=== PATIENT | male | born 1965 | race Caucasian/White ===

== ENCOUNTER 2020-06-03 17:47 | Emergency (ER) | payer SELFPAY ==
[2020-06-03 17:48] VITALS: BP 238/153; PULSE 113; RESP 18; O2SAT 97; BMI 41.1
[2020-06-03 17:54] VITALS: BP 201/128; PULSE 87; RESP 22; O2SAT 93
--- NOTE | 2020-06-03 18:01 | ECG_ITS ---
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 Measurements Intervals [place] Rate: 105 P: 16 ME: 164 QRS: 120 QRSD: 100 T: -29 QT: 362 QTc: 479 Interpretive Statements SINUS TACHYCARDIA POSSIBLE LEFT ATRIAL ENLARGEMENT [-0.1mV P WAVE IN V1/V2] INCOMPLETE RIGHT BUNDLE BRANCH BLOCK [90+ ms QRS DURATION, TERMINAL R IN V1/V2, 40+ ms S IN I/aVL/V4/V5/V6] POSSIBLE RIGHT VENTRICULAR HYPERTROPHY [SOME/ALL OF: PROMINENT R IN V1, LATE TRANSITION, RAD, JOÃO, SSS] Nonspecific T wave changes POSSIBLE ANTERIOR MYOCARDIAL INFARCTION , OF INDETERMINATE AGE [30 ms Q WAVE IN V3/V4, OR R < 0.2 mV IN V4] Compared to ECG 05/21/2018 20:15:37 Incomplete right bundle-branch block now present Myocardial infarct finding still present Electronically Signed On 06-04-2020 20:35:36 CDT by Armani Chiang M.D. [id number] f
--- NOTE | 2020-06-03 18:01 | XR_ITS ---
WS: [id number] Exam: XR chest 1V portable [id number] Date/Time of Exam: 06/03/2020 6:03 PM Reason For Exam: sob No priors. There is cardiac enlargement with mild pulmonary vascular congestion suggesting low-grade CHF. No pl eural effusion or pneumothorax. No consolidating infiltrates. The mediastinum is unremarkable for jeb hnique. Regional bony elements are intact. XR/XR chest 1V portable [id number] IMPRESSION: 1. Cardiac enlargement with pulmonary vascular congestion suggesting some degre e of the low-grade CHF.
--- NOTE | 2020-06-03 18:19 | ED_ITS ---
HPI - General Adult General: Chief complaint: General Medical Stated complaint: SOB/High BP Time Seen by Provider: 06/03/20 17:58 Source: patient Mode of arrival: ambulatory Limitations: no limitations History of Present Illness: HPI narrative: 55-year-old male states he has a long history of high blood pressure. He states he has not taken any blood pressure medicines for over a year as he ran out. He states he is take metoprolol and clonidine. He states today started having some dyspnea and felt like his blood pressure was high. His blood pressure is 238/153 he states that is pretty normal for him. He denies any worsening improving factors. He denies any chest pain. Associated symptoms: Reports dyspnea and headache(s); Deny chest pain, nausea, rash or vomiting Review of Systems Const: Denies: fever(s), chills, body aches or change in appetite Eyes: Denies: blurry vision or eye discomfort ENMT: Denies: throat pain or dental pain Card: Denies: chest pain Resp: Reports: dyspnea GI: Denies: abdominal pain, nausea, vomiting or diarrhea : Denies: dysuria Musc: Denies: neck pain or back pain Skin/Breast: Denies: rash Neuro: Reports: headache(s) Psych: Denies: depression Pascual/Lymph: Denies: easy bruising All/Imm: Denies: urticaria Physical Exam Const: COMMON NORMALS: no acute distress, patient oriented x3 and healthy appearing HENMT: COMMON NORMALS: normocephalic and atraumatic HEAD & SCALP: normocephalic and atraumatic Eye: COMMON NORMALS: Equal, round and reactive pupils present and EOMs intact bilaterally PUPIL: Yes Equal, round and reactive pupils present Neck/C-Spine: COMMON NORMALS: full ROM and supple Chest: COMMONS NORMALS: normal inspection of the chest and normal palpation of entire chest wall Resp: COMMON NORMALS: normal respiratory effort, No retractions, No use of accessory muscles and clear to auscultation bilaterally AUSCULTATION: clear to auscultation bilaterally Cardio: COMMON NORMALS: regular rate, regular rhythm and No murmurs present (Cardio) RATE: regular rate RHYTHM: regular rhythm GI: COMMON NORMALS: Normal to inspection, nondistended, normoactive bowel sounds present, Soft to palpation, non-tender and no masses PALPATION: Yes Soft to palpation Extremity: COMMON NORMALS: normal to inspection and full ROM Neuro: COMMON NORMALS: patient oriented x3, moves all extremities and no focal motor deficits Psych: COMMON NORMALS: mental status grossly normal, Normal thought process present and cooperative THOUGHT PROCESS: Normal thought process present Skin: COMMON NORMALS: no rashes or lesions noted and no wounds GENERAL SKIN EXAM: no rashes or lesions noted Course Vital Signs: Vital signs: Vital Signs Pulse Rate 93 06/03/20 21:06 Respiratory Rate 26 H 06/03/20 21:06 Blood Pressure 166/111 06/03/20 21:06 Pulse Oximetry 96 06/03/20 21:06 MDM - General Adult MDM Narrative: Medical decision making narrative: Jeronimo presents here with hypertension that is been uncontrolled for quite some time due to noncompliance. His blood pressure here is improved and he feels improved. His repeat troponin here is normal. He has no signs of acute coronary syndrome or pulmonary embolism. We will start him on metoprolol at home. He is to follow-up with PCP in 3 to 5 days and return to the ER if worsening. He understands agrees to plan. Lab Data: Labs: Lab Results 06/03/20 06/03/20 06/03/20 Range/Units 18:25 18:25 18:25 WBC 9.7 (4.0-10.0) 10^3/ uL RBC 5.39 H (4.1-5.3) 10^6/u L Hgb 14.1 (11.7-16.6) g/dL Hct 46.5 (42.0-52.0) % MCV 86.3 (80-94) fL MCH 26.2 L (28.0-34.0) pg MCHC 30.3 (30.0-36.0) g/dL RDW 15.0 (12.1-15.1) % Plt Count 289 (130-400) 10^3/c mm MPV 9.6 (7.4-10.4) fL Neut % (Auto) 81.8 % Lymph % (Auto) 10.4 % [place] % (Auto) 5.9 % Eos % (Auto) 1.3 % Baso % (Auto) 0.3 % Neut # (Auto) 7.94 H (1.8-7.7) 10^3/u L Lymph # (Auto) 1.0 (0.8-4.8) 10^3/u L [place] # (Auto) 0.6 (0.2-0.9) 10^3/u L Eos # (Auto) 0.1 (0.0-0.8) 10^3/u L Baso # (Auto) 0.0 (0.0-0.1) 10^3/u L Nucleated RBC % (a uto) 0 % Nucleated RBCs # 0.0 /100WBC Sodium 139 (136-145) mmol/L Potassium 3.7 (3.5-5.1) mmol/L Chloride 99 (98-107) mmol/L Carbon Dioxide 27 (22-29) mmol/L Anion Gap 16.7 (5-19) BUN 13 (6-20) mg/dL Creatinine 1.1 (0.7-1.2) mg/dL GFR Calculation 69.8 L (90-130) mL/min Glucose 114 (65-115) mg/dL Calculated Osmolal ity 289 (285-295) mOsm/k g Calcium 8.7 (8.5-10.5) mg/dL Total Bilirubin 0.6 (0.15-1.2) mg/dL AST 15 (0-40) U/L ALT 20 (0-41) U/L Alkaline Phosphata se 91 (40-130) IU/L Troponin T Baselin e 35 H (0-15) ng/L Troponin T 120 Min [place] (0-15) ng/L Delta Troponin T (0-10) ABS# NT-Pro-B Natriuret Pep 825 H (0-125) pg/mL Total Protein 8.1 (6.6-8.7) g/dL Albumin 4.0 (3.5-5.2) g/dL Globulin 4.1 (1.3-4.6) g/dL 06/03/ Range/Units 20:29 WBC (4.0-10.0) 10^3/ uL RBC (4.1-5.3) 10^6/u L Hgb (11.7-16.6) g/dL Hct (42.0-52.0) % MCV (80-94) fL MCH (28.0-34.0) pg MCHC (30.0-36.0) g/dL RDW (12.1-15.1) % Plt Count (130-400) 10^3/c mm MPV (7.4-10.4) fL Neut % (Auto) % Lymph % (Auto) % [place] % (Auto) % Eos % (Auto) % Baso % (Auto) % Neut # (Auto) (1.8-7.7) 10^3/u L Lymph # (Auto) (0.8-4.8) 10^3/u L [place] # (Auto) (0.2-0.9) 10^3/u L Eos # (Auto) (0.0-0.8) 10^3/u L Baso # (Auto) (0.0-0.1) 10^3/u L Nucleated RBC % (a uto) % Nucleated RBCs # /100WBC Sodium (136-145) mmol/L Potassium (3.5-5.1) mmol/L Chloride (98-107) mmol/L Carbon Dioxide (22-29) mmol/L Anion Gap (5-19) BUN (6-20) mg/dL Creatinine (0.7-1.2) mg/dL GFR Calculation (90-130) mL/min Glucose (65-115) mg/dL Calculated Osmolal ity (285-295) mOsm/k g Calcium (8.5-10.5) mg/dL Total Bilirubin (0.15-1.2) mg/dL AST (0-40) U/L ALT (0-41) U/L Alkaline Phosphata se (40-130) IU/L Troponin T Baselin e (0-15) ng/L Troponin T 120 Min [place] 32.59 H (0-15) ng/L Delta Troponin T -2.41 L (0-10) ABS# NT-Pro-B Natriuret Pep (0-125) pg/mL Total Protein (6.6-8.7) g/dL Albumin (3.5-5.2) g/dL Globulin (1.3-4.6) g/dL Imaging Data^: CXR: Attestation: I personally reviewed and interpreted this imaging study as follows: My impression: no acute abnormality EKG Data^: EKG 1: Attestation: I personally reviewed and interpreted this EKG as follows: EKG interpretation date: 06/03/20 EKG interpretation time: 18:13 Interpretation: sinus tach hr [address] or t wave abnormalities qrs 100 qtc 422 Discharge Plan Discharge Patient Disposition: Home Clinical Impression: Hypertension Qualifiers: Hypertension type: essential hypertension Qualified Code(s): I10 - Essential (primary) hypertension Condition: Stable Prescriptions: New metoprolol succinate 50 mg tablet extended release 24 hr 50 mg PO DAILY Qty: 30 RF: 0 Discharge Orders: Discharge ED (Routine); Ordered 06/03/20 Ordered By: Eloy Bay Referrals: Blanca Alonzo FNP [Primary Care Provider] - 1-3 days Discharge Diet: Advance as tolerated Discharge Activity: Resume usual activity Coding Level of Care Code ED Novelty Printing Machine Operator for Chg Fwd Exam Comprehensive
--- NOTE | 2020-06-03 18:30 | PC.NURSE ---
Noted lower extremities swollen. Pt states he has lower legs wrapped.
[2020-06-03] MEDS: labetalol 5 mg/mL SDV 20mL 20 MG IVP (18:32)
[2020-06-03 18:34] VITALS: BP 155/110; PULSE 88; RESP 27; O2SAT 98
[2020-06-03 18:54] LABS: Basophils % 0.3 %; Eosinophils # 0.1 10^3/uL (0.0-0.8); Eosinophils % 1.3 %; Hematocrit 46.5 % (42.0-52.0); Hemoglobin 14.1 g/dL (11.7-16.6); Lymphocytes % 10.4 %; Mean Corpuscular HGB Conc 30.3 g/dL (30.0-36.0); Mean Corpuscular Hemoglobin 26.2 pg (28.0-34.0); Mean Corpuscular Volume 86.3 fL (80-94); Mean Platelet Volume 9.6 fL (7.4-10.4); Monocytes # 0.6 10^3/uL (0.2-0.9); Monocytes % 5.9 %; Neutrophils # 7.94 10^3/uL (1.8-7.7); Neutrophils % 81.8 %; Nucleated Red Blood Cells % 0 %; Platelet Count 289 10^3/cmm (130-400); Red Blood Count 5.39 10^6/uL (4.1-5.3); White Blood Count 9.7 10^3/uL (4.0-10.0)
[2020-06-03 19:22] VITALS: BP 157/112; PULSE 83; RESP 18; O2SAT 94
[2020-06-03 19:28] VITALS: BP 153/106; PULSE 87; O2SAT 96
[2020-06-03 19:40] LABS: Troponin(5th) Baseline 35 ng/L (0-15)
[2020-06-03 19:47] LABS: Alanine Aminotransferase 20 U/L (0-41); Alkaline Phosphatase 91 IU/L (40-130); Anion Gap 16.7 (5-19); Aspartate Amino Transferase 15 U/L (0-40); Blood Urea Nitrogen 13 mg/dL (6-20); Calcium 8.7 mg/dL (8.5-10.5); Carbon Dioxide 27 mmol/L (22-29); Chloride 99 mmol/L (98-107); Globulin 4.1 g/dL (1.3-4.6); Glomerular Filtration Rate 69.8 mL/min (90-130); Glucose 114 mg/dL (65-115); NT Pro B Type Natriuretic Pept 825 pg/mL (0-125); Osmolality Calculated 289 mOsm/kg (285-295); Potassium 3.7 mmol/L (3.5-5.1); Sodium 139 mmol/L (136-145); Total Bilirubin 0.6 mg/dL (0.15-1.2); Total Protein 8.1 g/dL (6.6-8.7)
[2020-06-03 20:55] LABS: Troponin 5 2HR 32.59 ng/L (0-15); Troponin 5 2HR Delta -2.41 ABS# (0-10)
[2020-06-03 21:06] VITALS: BP 166/111; PULSE 93; RESP 26; O2SAT 96
== END 2020-06-03 21:26 | disposition home or self-care (01) ==
PROVIDERS: Emergency Provider Emergency Medicine; PCP Nurse Practitioner
DX: I10 Essential (primary) hypertension (principal)
CPT/HCPCS: 71045; 80053; 83880; 84484; 85025; 93005; 96374; 99284; J3490

== ENCOUNTER → 2020-06-11 13:37 | Outpatient (BNVA) | payer OTHER, SELFPAY | PROVIDERS: PCP Nurse Practitioner; Visit Provider Nurse Practitioner Family | DX: J06.9 Acute upper respiratory infection, unspecified (principal); Z20.822 Contact with and (suspected) exposure to COVID-19; I10 Essential (primary) hypertension | CPT/HCPCS: 87635 ==

== ENCOUNTER 2020-06-17 11:31 | Inpatient (IN) | payer SELFPAY ==
[2020-06-17] VITALS (9 sets, daily range): BP systolic 165–188; BP diastolic 110–133; PULSE 105–127; RESP 18–22; TEMP 36.6–36.7; O2SAT 91–97; BMI 42.3
--- NOTE | 2020-06-17 11:48 | XR_ITS ---
WS: [id number] Portable AP upright chest, 06/17/2020 Clinical Data: sob Comparison: Portable chest, 06/03/2020. Findings: There is a patchy left lower lobe opacity which is consistent with pneumonia. There is a le ss dense opacity overlying the right lower lobe. The heart remains enlarged. The aortic arch and desc ending aorta are tortuous. No pneumothorax is seen. XR/XR chest 1V portable [id number] Impression: 1. Patchy left lower lobe opacity consistent with pneumonia. 2. Minimal right lower lobe opacity which could represent pneumonia or atelecta sis. 3. Atherosclerosis and cardiomegaly
--- NOTE | 2020-06-17 11:51 | ECG_ITS ---
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1965 Requested By: Kunal Sainz Order Number: [id number] Mani MD: SHANIKA MORENO Measurements Intervals [place] Rate: 121 P: [place]: QRS: -54 QRSD: 87 T: 67 QT: 311 QTc: 443 Interpretive Statements ATRIAL FIBRILLATION WITH RAPID VENTRICULAR RESPONSE MARKED LEFT AXIS DEVIATION [QRS AXIS < -30] POSSIBLE ANTERIOR MYOCARDIAL INFARCTION [30 ms Q WAVE IN V3/V4, OR R < 0.2 mV IN V4], OF INDETERMINATE AGE Compared to ECG 06/03/2020 18:13:14 Left-axis deviation now present Sinus tachycardia no longer present Incomplete right bundle-branch block no longer present Atrial abnormality no longer present T-wave abnormality no longer present Myocardial infarct finding still present Electronically Signed On 06-17-2020 20:22:06 CDT by SHANIKA MORENO [email or web address]/[id number] f
--- NOTE | 2020-06-17 11:57 | ED_ITS ---
HPI - SOB/Dyspnea General: Chief Complaint: Shortness of Breath/Dyspnea Stated Complaint: SOB Time Seen by Provider: 06/17/20 11:45 History of Present Illness: HPI Narrative: The patient is a 55-year-old male with past medical history hypertension who comes to the ER complaining of 2 weeks of shortness of breath. He was seen here 2 weeks ago for tachycardia and shortness of breath and sent home with 50 mg of Toprol extended release. He says it did not work after a few days so he started taking 1 pill in the morning and 1 pill in the evening even though the prescription said just once a day. He says it still made no difference. He continues to have shortness of breath which is worse with exertion and elevated blood pressure. Prior to 2 weeks ago he had been a year without any medicines at all because he says he did not get refills. Today his heart rate is 127 and irregular. Blood pressure 188/117. Denies any other previous past medical history. He has large lower extremities which she says have chronically been large and are expected to be that way forever but they are not bothering him today. MD elicited complaint: shortness of breath Associated symptoms: Deny abdominal pain, chest pain, dizziness, extremity pain, orthopnea, palpitations or polyuria Review of Systems General: Reports: 10 or more systems reviewed and unremarkable except in HPI and below Const: Denies: fatigue Eyes: Denies: change in vision, blurry vision or eye redness ENMT: Denies: throat pain, swelling of lips/tongue, ear or mastoid pain or nasal congestion Card: Denies: chest pain, palpitations, irregular heart rhythm, edema, dyspnea on exertion or orthopnea Resp: Reports: dyspnea; Denies: productive cough or non-productive cough GI: Denies: abdominal pain, diarrhea or GI cramping : Denies: flank pain, urinary frequency or urinary urgency Musc: Denies: neck pain, back pain, extremity pain, joint pain, joint redness, limited range of motion or muscle weakness Skin/Breast: Denies: rash, pruritus, erythema, skin pain or skin tenderness Neuro: Denies: headache(s), numbness in extremities, weakness in extremities, sensory changes, difficulty walking, dizziness, confusion or Slurred speech present Psych: Denies: anxiety or depression Endo: Denies: polyuria All/Imm: Denies: urticaria, throat swelling or tongue swelling PFSH ED PFSH: Medical History (Updated 06/17/20 @ 15:46 by Kunal Sainz MD) History of hypertension Surgical History (Updated 06/17/20 @ 15:34 by Vernon Izquierdo MD) History of inguinal hernia repair Family History (Updated 06/17/20 @ 15:35 by Vernon Izquierdo MD) Father Cancer Prostate cancer Mother CAD (coronary artery disease) Social History (Updated 06/17/20 @ 15:36 by Vernon Izquierdo MD) Smoking and tobacco status: never smoked Alcohol intake: current Alcohol intake frequency: few times a month Substance/Drug Use: never Physical Exam Const: COMMON NORMALS: no acute distress, average body habitus, patient oriented x3, no limitations, healthy appearing, alert and well nourished GENERAL APPEARANCE: cooperative, comfortable, well kempt and well developed ORIENTATION/CONSCIOUSNESS: Yes awake, Yes oriented to person, Yes oriented to place and Yes oriented to time HENMT: COMMON NORMALS: normocephalic, external ears normal and Normal external nose present HEAD & SCALP: normal to inspection and normocephalic NOSE: No rmal external nose present EXTERNAL EAR: Yes external ears normal MOUTH: Normal oral and palatal mucosa present THROAT: posterior oropharynx normal Eye: COMMON NORMALS: Equal, round and reactive pupils present and EOMs intact bilaterally GENERAL EYE: appearance normal, both eyes and all related structures PUPIL: Yes Equal, round and reactive pupils present Neck/C-Spine: COMMON NORMALS: full ROM, no lymphadenopathy, no meningeal signs and no JVD GENERAL: Yes normal visual inspection Lymph: LYMPHATIC: no lymphadenopathy noted Chest: COMMONS NORMALS: normal inspection of the chest and normal palpation of entire chest wall Resp: COMMON NORMALS: normal respiratory effort, No retractions, No use of accessory muscles, clear to auscultation bilaterally and percussion normal EFFORT & INSPECTION: Yes able to speak in complete sentences AUSCULTATION: clear to auscultation bilaterally PERCUSSION: percussion normal Cardio: COMMON NORMALS: no JVD, S1 normal heart sound present, S2 normal heart sound present and Peripheral pulses 2+ throughout RATE: tachycardic RHYTHM: abnormal rhythm irregularly irregular and regularly irregular HEART SOUNDS: S1 normal heart sound present and S2 normal heart sound present PERIPHERAL PULSES: Peripheral pulses 2+ throughout GI: COMMON NORMALS: Normal to inspection, nondistended, normoactive bowel sounds present, Soft to palpation, non-tender and no masses INSPECTION: Yes normal to inspection PALPATION: Yes Soft to palpation : COMMON NORMALS: Yes no CVA tenderness BLADDER/KIDNEY EXAM: Yes no CVA tenderness Back/Pelvis: COMMON NORMALS: no CVA tenderness, thoracic and lumbar spine normal to inspection, no thoracic nor lumbar tenderness and thoraco-lumbar ROM normal Extremity: COMMON NORMALS: normal to inspection, full ROM, capillary refill normal, no joint enlargement and no pedal edema NARRATIVE EXTREMITY EXAM: Bilateral lower extremity edema 3+ with chronic skin thickening and scaly. Left lower extremity laterally has an area that is malodorous and likely a cellulitis. GENERAL: Yes normal exam except as noted Neuro: COMMON NORMALS: patient oriented x3, CN's II-XII intact bilaterally, moves all extremities, no focal motor deficits, no sensory deficits noted and gait normal SENSORIUM/ORIENTATION: Yes alert, Yes oriented to person, Yes oriented to place and Yes oriented to time MENINGEAL SIGNS: Yes no meningeal signs Psych: COMMON NORMALS: mental status grossly normal, Normal thought process pr esent, cooperative, normal affect and speech normal APPEARANCE: Yes well kempt ATTITUDE: Yes calm SPEECH: Yes normal speech THOUGHT PROCESS: Normal thought process present Skin: COMMON NORMALS: no rashes or lesions noted GENERAL SKIN EXAM: no rashes or lesions noted Course Vital Signs: Vital signs: Vital Signs Temperature 97.9 F 06/17/20 11:35 Pulse Rate 110 H 06/17/20 13:52 Respiratory Rate 18 06/17/20 13:52 Blood Pressure 166/112 06/17/20 13:52 Pulse Oximetry 95 06/17/20 13:52 MDM - SOB/Dyspnea MDM Narrative: Medical decision making narrative: Patient came to the ER for the second time in 2 weeks. He comes in complaining of shortness of breath again and tachycardia. On arrival he is in A. fib RVR with a rate in the 120s. This is a new disease for him. He also has chronically large legs with an area of cellulitis and likely congestive heart failure. He was given IV Lasix and an antibiotic to cover these problems. Chest CT also noted pneumonia. I discussed with him the enlarged mediastinal lymph nodes found on CT possibly reactive but recommended follow-up CT after he gets better. I discussed with him the small possibility of cancer and that he should repeat this to make sure they improve as if it is an early cancer, early diagnosis leads to better prognosis. Lab Data: Labs: Lab Results 06/17/20 06/17/20 06/17/20 Range/Units 12:00 12:00 12:00 WBC 10.5 H (4.0-10.0) 10^3/ uL RBC 5.38 H (4.1-5.3) 10^6/u L Hgb 14.1 (11.7-16.6) g/dL Hct 45.7 (42.0-52.0) % MCV 84.9 (80-94) fL MCH 26.2 L (28.0-34.0) pg MCHC 30.9 (30.0-36.0) g/dL RDW 14.7 (12.1-15.1) % Plt Count 335 (130-400) 10^3/c mm MPV 9.4 (7.4-10.4) fL Neut % (Auto) 80.0 % Lymph % (Auto) 12.0 % [place] % (Auto) 6.7 % Eos % (Auto) 0.5 % Baso % (Auto) 0.4 % Neut # (Auto) 8.39 H (1.8-7.7) 10^3/u L Lymph # (Auto) 1.3 (0.8-4.8) 10^3/u L [place] # (Auto) 0.7 (0.2-0.9) 10^3/u L Eos # (Auto) 0.1 (0.0-0.8) 10^3/u L Baso # (Auto) 0.0 (0.0-0.1) 10^3/u L Nucleated RBC % (a uto) 0 % Nucleated RBCs # 0.0 /100WBC D-Dimer 1.45 H (0-0.59) ug/mIFE U Sodium 133 L (136-145) mmol/L Potassium 4.5 (3.5-5.1) mmol/L Chloride 96 L (98-107) mmol/L Carbon Dioxide 28 (22-29) mmol/L Anion Gap 13.5 (5-19) BUN 15 (6-20) mg/dL Creatinine 1.1 (0.7-1.2) mg/dL GFR Calculation 69.8 L (90-130) mL/min Glucose 103 (65-115) mg/dL Calculated Osmolal ity 277 L (285-295) mOsm/k g Calcium 8.9 (8.5-10.5) mg/dL Total Bilirubin 0.9 (0.15-1.2) mg/dL AST 17 (0-40) U/L ALT 21 (0-41) U/L Alkaline Phosphata se 104 (40-130) IU/L Troponin T Baselin e (0-15) ng/L Troponin T 120 Min [place] (0-15) ng/L Delta Troponin T (0-10) ABS# NT-Pro-B Natriuret Pep 2561 H (0-125) pg/mL Total Protein 7.7 (6.6-8.7) g/dL Albumin 4.2 (3.5-5.2) g/dL Globulin 3.5 (1.3-4.6) g/dL TSH 4.16 (0.27-4.20) uIU/ mL Urine Color (Yellow) Urine Appearance (CLEAR) Urine pH (5-7) Ur Specific Gravit y (1.005-1.030) Urine Protein (Negative) Urine Glucose (UA) (Normal) Urine Ketones (Negative) Urine Blood (Negative) Urine Nitrate (Negative) Urine Bilirubin (Negative) Urine Urobilinogen (Negative) mg/dL Ur Leukocyte Yoselyn ase (Negative) Urine RBC (0-2) /hpf Urine WBC (0-5) /hpf Ur Squamous Epith Cells (0-5) /hpf Amorphous Sediment Urine Bacteria (NONE) /hpf Hyaline Casts /lpf 06/17/20 06/17/20 06/17/20 Range/Units 12:00 13:51 14:00 WBC (4.0-10.0) 10^3/ uL RBC (4.1-5.3) 10^6/u L Hgb (11.7-16.6) g/dL Hct (42.0-52.0) % MCV (80-94) fL MCH (28.0-34.0) pg MCHC (30.0-36.0) g/dL RDW (12.1-15.1) % Plt Count (130-400) 10^3/c mm MPV (7.4-10.4) fL Neut % (Auto) % Lymph % (Auto) % [place] % (Auto) % Eos % (Auto) % Baso % (Auto) % Neut # (Auto) (1.8-7.7) 10^3/u L Lymph # (Auto) (0.8-4.8) 10^3/u L [place] # (Auto) (0.2-0.9) 10^3/u L Eos # (Auto) (0.0-0.8) 10^3/u L Baso # (Auto) (0.0-0.1) 10^3/u L Nucleated RBC % (a uto) % Nucleated RBCs # /100WBC D-Dimer (0-0.59) ug/mIFE U Sodium (136-145) mmol/L Potassium (3.5-5.1) mmol/L Chloride (98-107) mmol/L Carbon Dioxide (22-29) mmol/L Anion Gap (5-19) BUN (6-20) mg/dL Creatinine (0.7-1.2) mg/dL GFR Calculation (90-130) mL/min Glucose (65-115) mg/dL Calculated Osmolal ity (285-295) mOsm/k g Calcium (8.5-10.5) mg/dL Total Bilirubin (0.15-1.2) mg/dL AST (0-40) U/L ALT (0-41) U/L Alkaline Phosphata se (40-130) IU/L Troponin T Baselin e 28 H (0-15) ng/L Troponin T 120 Min [place] 26.11 H (0-15) ng/L Delta Troponin T -1.89 L (0-10) ABS# NT-Pro-B Natriuret Pep (0-125) pg/mL Total Protein (6.6-8.7) g/dL Albumin (3.5-5.2) g/dL Globulin (1.3-4.6) g/dL TSH (0.27-4.20) uIU/ mL Urine Color Yellow (Yellow) Urine Appearance Clear (CLEAR) Urine pH 5 (5-7) Ur Specific Gravit y 1.015 (1.005-1.030) Urine Protein 2+ H (Negative) Urine Glucose (UA) Norm (Normal) Urine Ketones Negative (Negative) Urine Blood Neg (Negative) Urine Nitrate Negative (Negative) Urine Bilirubin Neg (Negative) Urine Urobilinogen 1 H (Negative) mg/dL Ur Leukocyte Yoselyn ase Negative (Negative) Urine RBC None (0-2) /hpf Urine WBC 0-4 H (0-5) /hpf Ur Squamous Epith Cells 0-4 H (0-5) /hpf Amorphous Sediment Not Reportable Urine Bacteria Trace (NONE) /hpf Hyaline Casts 0-4 H /lpf Discharge Plan Discharge Patient Disposition: Admitted As Inpatient Admit Provider: Vernon Izquierdo Clinical Impression: CHF exacerbation, New onset a-fib, Pneumonia, Enlarged lymph nodes Condition: Stable Coding Level of Care Code ED Link And Link Knitting Machine Operator for Chg Fwd Exam Comprehensive
--- NOTE | 2020-06-17 12:00 | USCV_ITS ---
Jeronimo Clark Age: 55 Gender: M : 1965 Exam Date: 06/17/2020 12:10 Ordering Phys: Kunal Sainz MD Technologist: Eugenia Umanzor Exam Location: [facility] [place] Indication: SWOLLEN LEGS HISTORY: Lower extremity swelling. PROCEDURES: Venous duplex imaging was performed in bilateral lower extremities. The following venous structures were evaluated: common femoral vein, profunda vein, proximal portion of the greater saphenous vein, superficial femoral vein, and the popliteal vein. In addition, the posterior tibial and peroneal trunk were evaluated. Serial compression, augmentation maneuvers, and spectral Doppler flow evaluation were performed. FINDINGS: Normal 2-D Doppler and augmentation and compressibility throughout the lower extremity venous structures. Additional imaging through the proximal calf veins also reveals no thrombus. Limited evaluation of the greater saphenous vein is patent with no thrombus.. CONCLUSIONS No evidence of right lower extremity DVT. No evidence of left lower extremity DVT. George Watters MD (Electronically Signed) Final Date: 17 June 2020 16:54 S
--- NOTE | 2020-06-17 12:02 | CT_ITS ---
WS: [id number] CTA OF THE CHEST WITH PULMONARY EMBOLISM PROTOCOL TECHNIQUE: High-resolution contrast enhanced CTA of the chest with coronal and sagittal reformatted i mages with pulmonary embolism protocol. MIP images are also reviewed. CLINICAL INFORMATION: dyspnea/tachycardia COMPARISON: None. DLP: 576.[address] scans at [facility] use at least one of these dose optimization techniques: automat ed exposure control; mA and/or kV adjustment per patient size (includes targeted exams where dose is matched to clinical indication); or iterative reconstruction. FINDINGS: Proximal main pulmonary arteries are normal. Segmental and subsegmental pulmonary arteries are normal . No evidence of pulmonary embolus. Normal caliber thoracic aorta. Numerous enlarged anterior mediastinal, AP window, right hilar and pe ribronchial lymph nodes. Enlarged subcarinal lymph nodes. These are nonspecific but may be reactive. Anterior mediastinal lymph nodes measure up to 2 cm. Small left pleural effusion. Right basilar atelectasis. Subtotal consolidation in the lingula with at electasis. Recommend correlation for pneumonia. Mild thoracic curve. Hypertrophic changes thoracic sp ine. CT/CT angio chest PE protcl [id number] IMPRESSION: 1. No evidence of pulmonary embolus. 2. Small left pleural effusion with compressive atelectasis left lower lobe. S ubtotal consolidation in the lingula. Recommend Correlation for pneumonia. 3. Subsegmental atelectasis right lower lobe. Enlarged anterior mediastinal, peribronchial, AP window, right hilar and subcar inal lymph nodes. These are nonspecific but may be reactive. Malignancy not ent irely excluded and Recommend interval follow-up chest CT after treatment. Notified Kunal Sainz MD at 06/17/2020 1:14 PM.
[2020-06-17 12:21] LABS: Basophils % 0.4 %; Eosinophils # 0.1 10^3/uL (0.0-0.8); Eosinophils % 0.5 %; Hematocrit 45.7 % (42.0-52.0); Hemoglobin 14.1 g/dL (11.7-16.6); Lymphocytes # 1.3 10^3/uL (0.8-4.8); Mean Corpuscular HGB Conc 30.9 g/dL (30.0-36.0); Mean Corpuscular Hemoglobin 26.2 pg (28.0-34.0); Mean Corpuscular Volume 84.9 fL (80-94); Mean Platelet Volume 9.4 fL (7.4-10.4); Monocytes # 0.7 10^3/uL (0.2-0.9); Monocytes % 6.7 %; Neutrophils # 8.39 10^3/uL (1.8-7.7); Nucleated Red Blood Cells % 0 %; Platelet Count 335 10^3/cmm (130-400); Red Blood Count 5.38 10^6/uL (4.1-5.3); Red Cell Distribution Width 14.7 % (12.1-15.1); White Blood Count 10.5 10^3/uL (4.0-10.0)
[2020-06-17 12:37] LABS: Troponin(5th) Baseline 28 ng/L (0-15)
[2020-06-17 12:47] LABS: D Dimer 1.45 ug/mIFEU (0-0.59)
[2020-06-17] MEDS: sodium chloride 0.9% 1,000 ML 999 ML IV (12:50)
[2020-06-17] MEDS: iohexol 350 mg/mL 100 mL Btl IV (12:54)
[2020-06-17 12:56] LABS: Alanine Aminotransferase 21 U/L (0-41); Albumin Level 4.2 g/dL (3.5-5.2); Alkaline Phosphatase 104 IU/L (40-130); Anion Gap 13.5 (5-19); Aspartate Amino Transferase 17 U/L (0-40); Blood Urea Nitrogen 15 mg/dL (6-20); Calcium 8.9 mg/dL (8.5-10.5); Carbon Dioxide 28 mmol/L (22-29); Chloride 96 mmol/L (98-107); Globulin 3.5 g/dL (1.3-4.6); Glomerular Filtration Rate 69.8 mL/min (90-130); Glucose 103 mg/dL (65-115); NT Pro B Type Natriuretic Pept 2561 pg/mL (0-125); Osmolality Calculated 277 mOsm/kg (285-295); Potassium 4.5 mmol/L (3.5-5.1); Sodium 133 mmol/L (136-145); Thyroid Stimulating Hormone 4.16 uIU/mL (0.27-4.20); Total Bilirubin 0.9 mg/dL (0.15-1.2); Total Protein 7.7 g/dL (6.6-8.7)
[2020-06-17] MEDS: FUROsemide 10 mg/mL SDV 4mL 40 MG IVP (13:29)
[2020-06-17] MEDS: levofloxacin-dextrose 5 % 750 MG/150 ML PREMIX 100 MG IV (13:30)
--- NOTE | 2020-06-17 13:51 | ECG_ITS ---
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1965 Requested By: Kunal Sainz Order Number: [id number] Mani MD: SHANIKA MORENO Measurements Intervals [place] Rate: 117 P: ID: QRS: -60 QRSD: 92 T: 80 QT: 328 QTc: 459 Interpretive Statements ATRIAL FIBRILLATION WITH RAPID VENTRICULAR RESPONSE LEFT AXIS DEVIATION [QRS AXIS < -30] POSSIBLE ANTERIOR MYOCARDIAL INFARCTION , OF INDETERMINATE AGE [30 ms Q WAVE IN V3/V4, OR R < 0.2 mV IN V4] Compared to ECG 06/03/2020 18:13:14 Left-axis deviation now present Sinus tachycardia no longer present Incomplete right bundle-branch block no longer present Atrial abnormality no longer present T-wave abnormality no longer present Myocardial infarct finding still present Electronically Signed On 06-17-2020 20:26:02 CDT by SHANIKA MORENO [id number]
[2020-06-17 14:19] LABS: Urine Color Yellow (Yellow)
[2020-06-17 14:20] LABS: Add Urine Microscopic? YES; Bilirubin Urine Neg (Negative); Blood Urine Neg (Negative); Glucose Urine UA Norm (Normal); Ketones Urine Negative (Negative); Leukocyte Esterase Urine Negative (Negative); Nitrate Urine Negative (Negative); Protein Urine 2+ (Negative); Specific Gravity, Urine 1.015 (1.005-1.030); Urine Appearance Clear (CLEAR); Urobilinogen Urine 1 mg/dL (Negative); pH Urine 5 (5-7)
[2020-06-17] MEDS: enoxaparin 100 mg/mL Syringe SUBCUT (14:24)
[2020-06-17] MEDS: enoxaparin 40 mg/0.4 mL Syringe SUBCUT (14:24)
[2020-06-17 14:26] LABS: Add Urine Culture? No; Bacteria Urine TRACE /hpf; Hyaline Casts Urine 0-4 /lpf; Squamous Epithelial Cell Urine 0-4 /hpf (0-5); WBC Urine 0-4 /hpf (0-5)
[2020-06-17 14:36] LABS: Troponin 5 2HR 26.11 ng/L (0-15)
[2020-06-17 14:56] LABS: Troponin 5 2HR Delta -1.89 ABS# (0-10)
--- NOTE | 2020-06-17 15:28 | P.HP_ITS ---
Providers/Chief Complaint Primary Care Provider: REYNOLD Carmona Chief Complaint: SOB History of Present Illness Jeronimo Clark is a 55 year old male with a past medical history of hypertension, no other significant medical history, has not seen a physician in over 2 years, has not taken his blood pressure medications in the long time, who presents to [facility] due to concerns for elevated blood pressure, chest palpitations, chest pain, shortness of breath, bilateral extremity edema, cellulitis. Patient tells me that he saw Blanca Alonzo over 2 years ago, he has not follow-up since then, and she is not in urgent care anymore, he tells me that for the last few months, he is experiencing increased shortness of breath, progressing to shortness of breath at rest, orthopnea, paroxysmal nocturnal dyspnea, whenever he becomes short of breath he tells me he gets chest pain, last episode was today, substernal chest pain nonradiating, no lightheadedness, dizziness, has a chronic cough, no fevers, chills, denies history of smoking. Patient tells me that he has chronic lower extremity cellulitis, he was seeing wound care a few years ago, but since then has not followed up due to expense, has bilateral extremity cellulitis, open sores, he dresses them himself Denies a history of CAD, no history of stroke, no history of diabetes, no history of hyperlipidemia, no history of chronic kidney disease, no smoking, no history of alcohol use, no history of drug use Review of Systems Const: Denies: fever(s), chills, fatigue or malaise Eyes: Denies: change in vision or blurry vision ENMT: Denies: nasal congestion Card: Reports: chest pain, irregular heart rhythm, edema, dyspnea on exertion and orthopnea; Denies: lightheadedness or syncope Resp: Reports: dyspnea and non-productive cough; Denies: productive cough or wheezing GI: Denies: abdominal pain, nausea, vomiting, hematemesis, diarrhea, constipation, hematochezia or melena : Denies: flank pain, difficulty urinating, dysuria or urinary frequency Musc: Denies: neck pain or back pain Skin/Breast: Reports: rash and skin tenderness Neuro: Denies: headache(s), dizziness or vertigo Psych: Denies: anxiety or depression Endo: Denies: polyuria or polydipsia Medications/Allergies Home Medications Medication Instructions Recorded Confirmed Last Taken Type amado root extract 2 cap PO BEDTIME 06/17/20 06/17/20 06/16/20 History metoprolol succinate 50 mg PO QAM 06/17/20 06/17/20 06/17/20 10:00 History Allergies Allergy/AdvReac Type Severity Reaction Status Date / Time No Known Allergies Allergy Verified 06/17/20 12:28 PFSH Acute PFSH: Medical History (Updated 06/17/20 @ 15:38 by Vernon Izquierdo MD) History of hypertension Surgical History (Updated 06/17/20 @ 15:34 by Vernon Izquierdo MD) History of inguinal hernia repair Family History (Updated 06/17/20 @ 15:35 by Vernon Izquierdo MD) Father Cancer Prostate cancer Mother CAD (coronary artery disease) Social History (Updated 06/17/20 @ 15:36 by Vernon Izquierdo MD) Smoking and tobacco status: never smoked Alcohol intake: current Alcohol intake frequency: few times a month Substance/Drug Use: never Vitals/I&O/Wt Last Vital Signs Temp 97.9 F 06/17/20 11:35 Pulse 110 H 06/17/20 13:52 Resp 18 06/17/20 13:52 BP 166/112 06/17/20 13:52 Pulse Ox 95 06/17/20 13:52 06/17/20 06/17/20 06/17/20 06:59 14:59 22:59 Intake Total 1000 / 1000 150 / 1150 Balance 1000 / 1000 150 / 1150 Weight last 48 hrs Weight 149.685 kg Physical Exam Const: COMMON NORMALS: no acute distress and patient oriented x3 GENERAL APPEARANCE: cooperative and comfortable HENMT: COMMON NORMALS: normocephalic HEAD & SCALP: normocephalic Eye: COMMON NORMALS: Equal, round and reactive pupils present and EOMs intact bilaterally GENERAL EYE: appearance normal, both eyes and all related structures PUPIL: Yes Equal, round and reactive pupils present Neck/C-Spine: COMMON NORMALS: full ROM and no lymphadenopathy OTHER: JVD 8 cm Lymph: LYMPHATIC: no lymphadenopathy noted Resp: COMMON NORMALS: normal respiratory effort, No retractions, No use of accessory muscles and clear to auscultation bilaterally AUSCULTATION: clear to auscultation bilaterally Cardio: COMMON NORMALS: no JVD, regular rate, regular rhythm, S1 normal heart sound present, S2 normal heart sound present, No gallops present (Cardio), No clicks present (Cardio) and No murmurs present (Cardio) RATE: regular rate RHYTHM: regular rhythm HEART SOUNDS: S1 normal heart sound present and S2 normal heart sound present GI: COMMON NORMALS: Normal to inspection, nondistended, normoactive bowel sounds present, Soft to palpation, non-tender and No hepatosplenomegaly present PALPATION: Yes Soft to palpation and Yes No hepatosplenomegaly present Extremity: COMMON NORMALS: normal to inspection and full ROM OTHER: Bilateral lower extremity 2+ pitting edema Bilateral lower extremity, erythema, swelling, open sores, active drainage, foul-smelling Neuro: COMMON NORMALS: patient oriented x3, CN's II-XII intact bilaterally, moves all extremities and no focal motor deficits Psych: COMMON NORMALS: mental status grossly normal, Normal thought process present and cooperative THOUGHT PROCESS: Normal thought process present Data : 06/17/20 12:00 06/17/20 12:00 A&P Assessment and plan (1) Hypertensive urgency: -Metoprolol 25 mg twice daily -Norvasc 10 mg daily -Add blood pressure medications as needed -Lovenox for DVT prophylaxis -Full code -Cardiac diet -PT OT Status: Acute (2) CHF exacerbation: -Unknown type diastolic versus systolic -Likely related to uncontrolled hypertension -However given chest pain, cannot rule out underlying cardiac etiology, CAD as an etiology Plan -Admit to CSU -Fluid restrictions 1200 cc -Bumex 1 mg every 12 hours -Monitor urine output, monitor creatinine -Cardiac echo -Telemetry monitoring -We will decide if patient needs cardiac stress testing based on further work-up Status: Acute (3) Bilateral lower extremity edema: -Likely related to cellulitis, and CHF exacerbation Status: Acute (4) Bilateral lower leg cellulitis: -With open sores -We will start on vancomycin, Rocephin and Flagyl -I have consulted Dr. Middleton for debridement of open sores, wound care Status: Acute (5) Mediastinal lymphadenopathy: -I went over scans with Dr. Kelsey, patient needs a follow-up with pulmonary as outpatient for sampling of lymph nodes, as some of the lymph nodes are over 2 cm Status: Acute (6) Chest pain: -Serial EKGs, serial troponins -Cardiac echo -Telemetry monitoring -Aspirin, statin, beta-val -We will consider stress testing based on work-up Status: Acute (7) New onset a-fib: -TSH within normal limits, magnesium within normal limits -Currently on Cardizem drip -Transition to metoprolol 25 mg twice daily -Therapeutic Lovenox Status: Acute Attestations Medical Necessity Statement*: Patient requires hospitalization inpatient, greater than 2 midnights, for chest pain, new onset heart failure, new onset atrial fibrillation, bilateral lower extremity cellulitis Coding Level of Care Code 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 [employer] [facility] [employer] Fwd Diagnoses Hypertensive urgency I16.0 CHF exacerbation I50.9 Bilateral lower extremity edema R60.0 Bilateral lower leg cellulitis L03.116; L03.115 Mediastinal lymphadenopathy R59.0 Chest pain R07.9 New onset a-fib I48.91
[2020-06-17] MEDS: cefTRIAXone 1,000 MG in sodium chloride 0.9% (plus) 50 ML 100 MG IV (16:53)
[2020-06-17] MEDS: atorvastatin 40 mg Tablet PO (16:55)
[2020-06-17] MEDS: metoprolol tartrate 25 mg Tablet PO (16:55)
[2020-06-17] MEDS: aspirin 81 mg EC Tablet PO (16:55)
[2020-06-17] MEDS: amlodipine 10 mg Tablet PO (16:55)
--- NOTE | 2020-06-17 17:07 | PM.CONSULT ---
Providers/Reason For Consult Consulting Physican/Specialty*: Jerman Middleton D.P.M. Reason for Consult*: Venous stasis ulceration Attending Physician: Vernon Izquierdo MD Primary Care Provider: REYNOLD Carmona History of Present Illness History of Present Illness Jeronimo Clark is a 55 year old male Presented to the emergency department today with complaints of shortness of breath and chest pain. He was admitted to the hospital service for hypertension and CHF with cardiac work-up. I was consulted to evaluate lower extremities. Patient reports many years of swelling of the lower extremities states that since the time he was in college he had significant fluid retention in his legs. He has lymphedema wraps that he trys to utilize on a regular basis, does not have compression stockings. He has lymphedema wraps on his right lower extremity at this time these have fallen around the ankle. Reports a history of 1 infection to his right lower extremity where he scraped his leg getting out of his car and had difficulty healing, denies any open wounds to the right lower extremity at this time. States he has a draining sore on his left leg. He is accompanied by his daughter. Denies history of diabetes. Review of Systems General: Reports: 10 or more systems reviewed and unremarkable except in HPI and below Const: Denies: fever(s) or chills Card: Denies: chest pain or palpitations Resp: Denies: productive cough GI: Denies: abdominal pain, nausea or vomiting : Denies: flank pain Musc: Reports: extremity swelling Skin/Breast: Reports: erythema, skin pain, skin tenderness, skin swelling, sores, lesions, changes in skin color, striae, nail changes and change in hair Neuro: Reports: difficulty walking; Denies: weakness in extremities Psych: Denies: suicidal ideation Pascual/Lymph: Denies: easy bruising Meds/Allergies Home Medications and Allergies Home Medications Medication Instructions Recorded Confirmed Last Taken Type ashwagandha root extract 2 cap PO BEDTIME 06/17/20 06/17/20 06/16/20 History metoprolol succinate 50 mg PO QAM 06/17/20 06/17/20 06/17/20 10:00 History Allergies Allergy/AdvReac Type Severity Reaction Status Date / Time No Known Allergies Allergy Verified 06/17/20 12:28 Current Medications Current Medications Generic Name Dose Route Start Last Admin Trade Name Freq PRN Reason Stop Dose Admin Amlodipine Besylate 10 mg 06/17/20 17:00 06/17/20 16:55 Amlodipine 10 Mg Tablet PO 10 mg Q24H MERRY Administration Aspirin 81 mg 06/17/20 17:00 06/17/20 16:55 Aspirin 81 Mg Ec Tablet PO 81 mg DAILY MERRY Administration Atorvastatin Calcium 40 mg 06/17/20 17:00 06/17/20 16:55 Atorvastatin 40 Mg Tablet PO 40 mg Q24H MERRY Administration Diltiazem HCl 125 mg/ Sodium 125 mls @ 0 mls/hr 06/17/20 14:30 06/17/20 16:22 Chloride IV 10 mg/hr .Q0M MERRY 10 mls/hr Titration Protocol Per Protocol Ceftriaxone Sodium 1,000 mg/ 50 mls @ 100 mls/hr 06/17/20 17:00 06/17/20 16:53 Sodium Chloride IV 100 mls/hr Q12H MERRY Administration Protocol Metoprolol Tartrate 25 mg 06/17/20 17:00 06/17/20 16:55 Metoprolol Tartrate 25 Mg Tablet PO 25 mg Q12H MERRY Administration PFSH Acute PFSH: Medical History (Updated 06/17/20 @ 20:47 by Jerman Middleton DPM) History of hypertension Surgical History (Updated 06/17/20 @ 15:34 by Vernon Izquierdo MD) History of inguinal hernia repair Family History (Updated 06/17/20 @ 15:35 by Vernon Izquierdo MD) Father Cancer Prostate cancer Mother CAD (coronary artery disease) Social History (Updated 06/17/20 @ 15:36 by Vernon Izquierdo MD) Smoking and tobacco status: never smoked Alcohol intake: current Alcohol intake frequency: few times a month Substance/Drug Use: never Vitals/I&O/Wt Last Vital Signs Temp 98.0 F 06/17/20 16:00 Pulse 115 H 06/17/20 16:00 Resp 20 H 06/17/20 16:00 BP 184/133 06/17/20 16:00 Pulse Ox 95 06/17/20 17:03 06/17/20 06/17/20 06/17/20 06:59 14:59 22:59 Intake Total 1000 / 1000 156.5 / 1156.5 Balance 1000 / 1000 156.5 / 1156.5 Weight last 48 hrs Weight 330 lb Physical Exam Narrative: EXAM NARRATIVE: GENERAL: Patient is alert and oriented ?3 and in no acute distress. The following is a focused bilateral lower extremity exam. VASCULAR: Dorsalis pedis arteries palpable, posterior tibial arteries palpable. Capillary refill time less than 3 seconds to the distal hallux bilaterally. Calf is supple and nontender proximally and distally. Diminished pedal hair growth, pitting edema to lower extremities. Rubor to the lower extremities. No increased warmth to the legs or feet. NEUROLOGICAL: Protective sensation intact to light touch. DERMATOLOGICAL: Wound at the anterolateral aspect of the left mid leg measures 4 mm x 4 mm x 1 mm post debridement has granular base and epithelialized margin no purulent drainage, drainage is serous does not probe, tunnel or undermine. Significant changes at lower extremity integument. In a gaiter distribution he has woody fibrosis and chronic skin pigmentation changes from hemosiderin deposits. MUSCULOSKELETAL: Tenderness palpation at the lower extremities bilaterally. Muscle strength 5 out of 5 in all 3 cardinal planes to the bilateral foot and ankle. A&P Assessment and plan (1) PVD (peripheral vascular disease): Status: Acute (2) Venous ulcer of left leg: Status: Acute Mixed etiology of venous insufficiency and lymphedema. Venous ulceration to the left lateral leg is clinically stable. Bedside wound debridement performed. Excisional debridement was performed, wound was debrided of biofilm, fibrin, slough and devitalized epidermis and dermis down to including subcutaneous tissue. Wound was dressed with silver impregnated alginate. Unna boot applied to the left and right lower extremity followed by Kerlix and Scotty wrap with approximately 25% stretch. Will contact [facility] for lymphedema wraps such as juxta lights or Juzo moving forward. Patient to elevate his feet while at rest and avoid extended periods of time with with feet in a gravity dependent position. Would recommend physical therapy consultation on discharge for total decongestive therapy. Podiatry will follow. 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
--- NOTE | 2020-06-17 17:51 | ECG_ITS ---
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1965 Requested By: Kunal Sainz Order Number: [id number] Mani MD: SHANIKA MORENO Measurements Intervals [place] Rate: 119 P: KS: QRS: -46 QRSD: 90 T: 90 QT: 318 QTc: 448 Interpretive Statements ATRIAL FIBRILLATION WITH RAPID VENTRICULAR RESPONSE WITH ABERRANT CONDUCTION OR VENTRICULAR PREMATURE COMPLEXES LEFT ANTERIOR FASCICULAR BLOCK [QRS AXIS <= -45, QR IN I, RS IN II] POSSIBLE ANTERIOR MYOCARDIAL INFARCTION [30 ms Q WAVE IN V3/V4, OR R < 0.2 mV IN V4], OF INDETERMINATE AGE Compared to ECG 06/17/2020 14:03:38 Ventricular premature complex(es) now present Aberrant conduction of supraventricular beat(s) now present Left anterior fascicular block now present Left-axis deviation no longer present Myocardial infarct finding still present Electronically Signed On 06-17-2020 20:25:38 CDT by SHANIKA MORENO [id number]
[2020-06-17] MEDS: bumetanide 0.25 mg/mL SDV 4 mL 1 MG IV (17:55)
[2020-06-17] MEDS: metroNIDAZOLE IV 500 MG/100 ML PREMIX 100 MG IV (17:55)
[2020-06-17] MEDS: cloNIDine 0.1 mg Tablet PO (17:55)
[2020-06-17] MEDS: famotidine 20 mg Tablet PO (17:55)
[2020-06-17 18:39] LABS: Troponin 5 6HR 32.27 ng/L (0-15); Troponin 5 6HR Delta 4.27 ng/L (0-12)
--- NOTE | 2020-06-17 23:46 | PC.NURSE ---
Patient current heart rate running upper 80s to upper 90s in atrial fibrillation. Decreased Cardizem drip to 5ml/hr. Patient sleeping up in chair. Patient reports sleeping up in recliner at home. No distress observed.
[2020-06-18] VITALS (12 sets, daily range): BP systolic 137–154; BP diastolic 97–118; PULSE 67–136; RESP 12–25; TEMP 36.6–37.1; O2SAT 91–94
[2020-06-18] MEDS: enoxaparin 100 mg/mL Syringe SUBCUT ×2 (01:17→13:21)
[2020-06-18] MEDS: metroNIDAZOLE IV 500 MG/100 ML PREMIX 100 MG IV ×2 (01:17→09:12)
[2020-06-18] MEDS: enoxaparin 40 mg/0.4 mL Syringe SUBCUT (01:17)
[2020-06-18] MEDS: metoprolol tartrate 50 mg Tablet PO ×2 (04:15→16:20)
[2020-06-18] MEDS: cefTRIAXone 1,000 MG in sodium chloride 0.9% (plus) 50 ML 100 MG IV (04:15)
[2020-06-18 05:11] LABS: Basophils % 0.4 %; Eosinophils # 0.1 10^3/uL (0.0-0.8); Eosinophils % 1.3 %; Hematocrit 44.4 % (42.0-52.0); Hemoglobin 13.5 g/dL (11.7-16.6); Lymphocytes # 1.8 10^3/uL (0.8-4.8); Lymphocytes % 17.4 %; Mean Corpuscular HGB Conc 30.4 g/dL (30.0-36.0); Mean Corpuscular Hemoglobin 26.2 pg (28.0-34.0); Mean Corpuscular Volume 86.2 fL (80-94); Monocytes # 0.9 10^3/uL (0.2-0.9); Neutrophils # 7.25 10^3/uL (1.8-7.7); Neutrophils % 71.5 %; Nucleated Red Blood Cells % 0 %; Platelet Count 347 10^3/cmm (130-400); Red Blood Count 5.15 10^6/uL (4.1-5.3); Red Cell Distribution Width 14.9 % (12.1-15.1); White Blood Count 10.1 10^3/uL (4.0-10.0)
[2020-06-18 05:18] LABS: INR 1.18 (0.8-1.2)
[2020-06-18 05:19] LABS: ABG PCO2 42.4 mmHg (35-45); ABG PH Result 7.44 (7.35-7.45); Arterial Blood Gas Hematocrit 42.8 % (42-52); Base Excess ABG 3.8 mmol/L (-2.0-2.0); Blood Gas Allen Test Pos; Blood Gas Operator Identificat HARKR; Blood Gas Sample Site Radial, right; Blood Gas Sample Type Arterial; HCO3 ABG 28.5 mmol/L (22-26); Oxygen Device ROOM AIR; PO2 ABG 72.2 mmHg (80.0-100.0)
[2020-06-18] MEDS: bumetanide 0.25 mg/mL SDV 4 mL 1 MG IV ×2 (05:31→17:43)
[2020-06-18 05:34] LABS: Alanine Aminotransferase 18 U/L (0-41); Albumin Level 3.6 g/dL (3.5-5.2); Alkaline Phosphatase 90 IU/L (40-130); Anion Gap 13.8 (5-19); Aspartate Amino Transferase 16 U/L (0-40); Blood Urea Nitrogen 18 mg/dL (6-20); C Reactive Protein 58.6 mg/L (0.0-4.9); Calcium 9.1 mg/dL (8.5-10.5); Carbon Dioxide 29 mmol/L (22-29); Chloride 97 mmol/L (98-107); Glomerular Filtration Rate 69.8 mL/min (90-130); Glucose 87 mg/dL (65-115); Magnesium 2.1 mg/dL (1.7-2.3); Osmolality Calculated 283 mOsm/kg (285-295); Phosphorus 2.9 mg/dL (2.5-4.5); Potassium 3.8 mmol/L (3.5-5.1); Sodium 136 mmol/L (136-145); Total Protein 7.6 g/dL (6.6-8.7)
--- NOTE | 2020-06-18 05:37 | PC.NURSE ---
Patient heart rate currently mid 80s. Patient cardizem drip stopped presently. Patient received scheduled dose of Metoprolol as ordered. Patient denies pain or needs. No distress observed.
[2020-06-18 05:40] LABS: Chol HDL Ratio 5.71 mg/dL (1.0-5.00); Cholesterol 200 mg/dL (0-200); HDL Cholesterol 35 mg/dL (60-100); LDL Cholesterol Calculated 152 mg/dL (50-129); LDL HDL Ratio 4.34 RATIO (0.00-3.22); NT Pro B Type Natriuretic Pept 1534 pg/mL (0-125); Triglycerides 65 mg/dL (0-150)
[2020-06-18 06:01] LABS: Estmated Average Glucose 111; Hemoglobin A1C 5.5 % (4.0-6.0)
--- NOTE | 2020-06-18 07:00 | USCV_ITS ---
Eduardo Jeronimo Age: 55 Gender: M : 1965 Exam Date: 06/18/2020 06:31 Ordering Phys: Vernon Izquierdo MD Technologist: Yeny Gomez Exam Location: [facility] [place] Indication: CHEST PAIN BP: 140 / 112 HR: 89 Rhythm: Sinus Technical Quality: Adequate MEASUREMENTS (Male / Female) Normal Values 2D ECHO LV Diastolic Diameter PLAX 4.4 cm 4.2 - 5.9 / 3.9 - 5.3 cm LV Systolic Diameter PLAX 3.0 cm IVS Diastolic Thickness 0.9 cm 0.6 - 1.0 / 0.6 - 0.9 cm IVS Systolic Thickness 1.3 cm LVPW Diastolic Thickness 1.0 cm 0.6 - 1.0 / 0.6 - 0.9 cm LVPW Systolic Thickness 1.4 cm LVOT Diameter 2.2 cm LV Ejection Fraction 2D Teich 50.1 % LV Ejection Fraction MOD 2C 64.7 % LV Ejection Fraction 2C AL 62.9 % LA Diameter 3.9 cm LA Width 4.1 cm LA Height 6.8 cm RA Width 3.5 cm RA Height 5.8 cm M-MODE LV Diastolic Diameter MM 7.0 cm 4.2 - 5.9 / 3.9 - 5.3 cm LV Systolic Diameter MM 6.0 cm LV Ejection Fraction MM Teich 30.7 % IVS Diastolic Thickness MM 0.9 cm 0.6 - 1.0 / 0.6 - 0.9 cm IVS Systolic Thickness MM 1.3 cm LVPW Diastolic Thickness MM 1.1 cm 0.6 - 1.0 / 0.6 - 0.9 cm LVPW Systolic Thickness MM 1.2 cm RV Diastolic Diameter MM 1.4 cm Aortic Annulus Diameter 3.9 cm LA Ao Ratio MM 1.0 MV E Point Septal Separation 1.6 cm DOPPLER AV Peak Velocity 140.0 cm/s LVOT Peak Velocity 84.0 cm/s AV Area Cont Eq vti 2.3 cm squared AV Area Cont Eq pk 2.2 cm squared MV Area PHT 5.5 cm squared Mitral E to A Ratio 4.7 MV E' Velocity 66.5 cm/s Mitral E to MV E' Ratio 18.4 Mitral E to LV E' Lateral Ratio 19.5 Mitral E to LV E' Septal Ratio 17.6 TR Peak Velocity 132.0 cm/s TR Peak Gradient 7.0 mmHg TV Peak E Velocity 95.0 cm/s Right Atrial Pressure 3.0 mmHg Pulmonary Artery Systolic Pressu 10.0 mmHg PV Peak Velocity 103.0 cm/s FINDINGS Left Ventricle Normal left ventricular cavity size. M decreased left ventricular systolic function. Global left ventricular hypokinesis. Left ventricular ejection fraction is estimated at 45 %. The presence of atrial fibrillation diastolic function cannot be assessed accurately. Please repeat the echo with contrast for LV function as left ventricle not well visualized and estimation of ejection fraction may not be accurate. Right Ventricle The right ventricle is normal in size and function. Right Atrium The right atrium is normal in size. Left Atrium The left atrium is normal in size. Mitral Valve Structurally normal mitral valve without significant stenosis or prolapse. There is no mitral regurgitation. Aortic Valve Structurally normal aortic valve without significant sclerosis or stenosis. There is no aortic regurgitation. Tricuspid Valve Structurally normal tricuspid valve without significant stenosis or regurgitation. Pulmonary artery systolic pressure is normal. Pulmonic Valve Structurally normal pulmonic valve without significant stenosis. There is no pulmonic regurgitation. Pericardium Normal pericardium without effusion. Aorta Normal ascending aorta dimension. CONCLUSIONS 1-Normal left ventricular cavity size. M decreased left ventricular systolic function. Global left ventricular hypokinesis. Left ventricular ejection fraction is estimated at 45 %. The presence of atrial fibrillation diastolic function cannot be assessed accurately. Please repeat the echo with contrast for LV function as left ventricle not well visualized and estimation of ejection fraction may not be accurate. 2-There is no pericardial effusion. 3-No significant valve abnormalities. 4-There are no intracardiac masses. 5-Pulmonary artery systolic pressure is within normal limits. 6-Right atrial pressure is around 5 mm of mercury. 7-There are no prior echocardiogram studies to compare. Travis Lin MD (Electronically Signed) Final Date: 18 June 2020 14:37 S
[2020-06-18] MEDS: famotidine 20 mg Tablet PO ×2 (09:13→18:00)
[2020-06-18] MEDS: spironolactone 25 mg Tablet PO (09:13)
[2020-06-18] MEDS: cloNIDine 0.1 mg Tablet PO ×2 (09:13→17:42)
[2020-06-18] MEDS: aspirin 81 mg EC Tablet PO (09:13)
[2020-06-18] MEDS: metOLazone 5 MG Tablet 10 MG PO (09:13)
--- NOTE | 2020-06-18 09:14 | PC.NUTR ---
NUTRITION WEIGHT ASSESSMENT: Ht. 74 inches. Wt. 316 pounds. BMI of 40.6 kg/m2 indicates Morbid Obesity.
--- NOTE | 2020-06-18 11:23 | PC.CHAP ---
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 visit [] Patient/Family/Request visit [] Outpatient visit [] Follow-up visit [] Physician referral [] Code/Alert [x] Routine visit [] Staff referral [] Actively dying [] Patient sleeping [] Family support [] [] Out of room [] Palliative care [] [x] Receiving care in room [] Pre-surgical visit [] Trauma [] Long length of stay [] ICU visit [] Other: Relational/Emotional Strength [x] Patient feels connected with others/family/visitors/staff [] Distress [] Loneliness/isolation [] Abandonment Spirituality of Patient [x] Person of Mica [] Attends Sabianist of their Mica [x] Believes in Prayer [] Reads Bible or Adventist materials [] There are Spiritual issues to be addressed Transition Advisor Interventions [x] Prayer [x] Active listening [x] Non-anxious presence [x] Spiritual/emotional support [] Crisis/trauma care [x] Spiritual counseling [] Bereavement support [] Provided bereavement packet [] Provided Bible/devotional materials [] Provided toy/stuffed animal, coloring book to patient or family member [] Provided Communion [] Anointing/[place] [] Salvation [x] Completed spiritual assessment [] Other: Impact on Illness or Injury [] Angry [] Fearful [x] Anxious [] Often cries [] Exhaustion [] Unable to work [] Unable to attend pentecostal [] Unable to walk/stand [] Unable to read [] Unable to drive [] Unable to eat/drink [] Unable to sleep [] Unable to be with family [] Patient intubated [] Other: Summary SOB Conjustive heart, has nhad tests, feels good going home in 2 to 3 days Time spent with patient 10 mins
--- NOTE | 2020-06-18 13:18 | PM.PN ---
Subjective Subjective: Interval history: This morning patient was examined, he tells me that he is feeling a lot better, still has swelling of his legs, swelling of his abdomen, some anasarca, but doing much better, he is still cannot lie flat, he sits up in a chair, no chest pain overnight, no lightheadedness, dizziness, no fevers Vitals/I&O/Wt Last Vital Signs Temp 98.3 F 06/18/20 11:33 Pulse 108 H 06/18/20 11:33 Resp 17 06/18/20 11:33 BP 140/106 06/18/20 11:33 Pulse Ox 94 06/18/20 11:33 06/17/20 06/18/20 06/18/20 22:59 06:59 14:59 Intake Total 1166.5 / 2166.5 253.25 / 2419.75 880 / 880 Output Total 1300 / 1300 775 / 775 Balance -133.5 / 866.5 253.25 / 1119.75 105 / 105 Weight last 48 hrs Weight 143.426 kg Weight 149.685 kg Physical Exam Const: COMMON NORMALS: no acute distress and patient oriented x3 GENERAL APPEARANCE: cooperative and comfortable HENMT: COMMON NORMALS: normocephalic HEAD & SCALP: normocephalic Eye: COMMON NORMALS: EOMs intact bilaterally Neck/C-Spine: COMMON NORMALS: no JVD OTHER: JVD 8 cm Resp: COMMON NORMALS: normal respiratory effort, No retractions and No use of accessory muscles AUSCULTATION: crackles Cardio: COMMON NORMALS: no JVD, S1 normal heart sound present, S2 normal heart sound present, No gallops present (Cardio), No clicks present (Cardio) and No murmurs present (Cardio) RATE: tachycardic RHYTHM: abnormal rhythm HEART SOUNDS: S1 normal heart sound present and S2 normal heart sound present GI: COMMON NORMALS: Normal to inspection, nondistended, normoactive bowel sounds present, Soft to palpation, non-tender and No hepatosplenomegaly present PALPATION: Yes Soft to palpation and Yes No hepatosplenomegaly present OTHER: Anasarca Extremity: COMMON NORMALS: normal to inspection and full ROM OTHER: Bilateral lower extremities wrapped and bandaged, has 2+ pitting edema Neuro: COMMON NORMALS: patient oriented x3 Psych: COMMON NORMALS: mental status grossly normal and cooperative Data : 06/18/20 04:15 06/18/20 04:15 A&P Assessment and plan (1) Hypertensive urgency: -Metoprolol 50 mg twice daily -Norvasc 10 mg daily -Clonidine 0.1 twice daily -Spironolactone 25 mg daily -Add blood pressure medications as needed -Lovenox for DVT prophylaxis -Full code -Cardiac diet -PT OT Status: Acute (2) CHF exacerbation: -Unknown type diastolic versus systolic -Likely related to uncontrolled hypertension -However given chest pain, cannot rule out underlying cardiac etiology, CAD as an etiology Plan -Admit to CSU -Fluid restrictions 1200 cc -Bumex 1 mg every 12 hours, 1 dose metolazone today -Monitor urine output, monitor creatinine -Cardiac echo -Telemetry monitoring -We will decide if patient needs cardiac stress testing based on further work-up Status: Acute (3) Bilateral lower extremity edema: -Likely related to cellulitis, and CHF exacerbation Status: Acute (4) Bilateral lower leg cellulitis: -With open sores -Status post debridement of open sores by Dr. Middleton -Likely venous stasis ulcers, lymphedema -De-escalate antibiotic therapy to doxycycline Augmentin -Bilateral extremities wrapped in bandage, Unna boot -Dr. Middleton on consult Status: Acute (5) Mediastinal lymphadenopathy: -I went over scans with Dr. Kelsey, patient needs a follow-up with pulmonary as outpatient for sampling of lymph nodes, as some of the lymph nodes are over 2 cm Status: Acute (6) Chest pain: -Serial EKGs, 6-hour troponin 32, delta 4 -No active chest pain -Cardiac echo -Telemetry monitoring -Aspirin, statin, beta-val -We will consider stress testing based on work-up Status: Acute (7) New onset a-fib: -TSH within normal limits, magnesium within normal limits -Currently heart rates 100 210, -On Metroprolol 50 mg twice daily -Therapeutic Lovenox Status: Acute Attestations Medical Necessity Statement*: Patient requires hospitalization for CHF exacerbation, A. 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
--- NOTE | 2020-06-18 13:26 | ECG_ITS ---
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 Measurements Intervals Bloomery Rate: 106 P: WA: QRS: -40 QRSD: 89 T: 79 QT: 357 QTc: 475 Interpretive Statements ATRIAL FIBRILLATION WITH RAPID VENTRICULAR RESPONSE MARKED LEFT AXIS DEVIATION [QRS AXIS < -30] POSSIBLE ANTERIOR MYOCARDIAL INFARCTION [30 ms Q WAVE IN V3/V4, OR R < 0.2 mV IN V4], OF INDETERMINATE AGE Compared to ECG 06/17/2020 17:57:57 Left-axis deviation now present Aberrant conduction of supraventricular beat(s) no longer present Ventricular premature complex(es) no longer present Left anterior fascicular block no longer present Myocardial infarct finding still present Electronically Signed On 06-18-2020 21:04:27 CDT by Dalia Rabago M.D. [id number]
[2020-06-18 14:00] LABS: Troponin T (5th) Once 30 ng/L (0-15)
[2020-06-18] MEDS: morphine 4 mg/mL SDV 1 mL 1 MG IVP (14:02)
--- NOTE | 2020-06-18 14:27 | PC.OT ---
OT screen completed. Pt reported he does his ADLs independently and does not have any needs or issues at this time. He reported he has shoulder pain that intermittently comes and goes and he does not have any concerns with this at this time. No OT recommended.
[2020-06-18] MEDS: atorvastatin 40 mg Tablet PO (16:20)
[2020-06-18] MEDS: cyclobenzaprine 10 mg Tablet PO (16:20)
[2020-06-18] MEDS: amlodipine 10 mg Tablet PO (16:20)
[2020-06-18] MEDS: doxycycline 100 mg Tablet PO (17:41)
[2020-06-18] MEDS: amoxicillin-clav 875-125 mg Tablet 1 TAB PO (17:41)
--- NOTE | 2020-06-18 18:13 | PC.NURSE ---
EARLY THIS AFTERNOON THE PATIENT STATED THAT HE WAS HAVING 8/10 RIGHT SHOULDER JOINT PAIN. NON RADIATING, BUT A SHARP STABBING PAIN. HE STATED THAT HE HAS HAD THIS PAIN BILATERALLY AT DIFFERENT INTERVALS IN THE PAST. DR. BARILLAS NOTIFIED TO WHICH HE ORDERED AN EKG, MORPHINE AND A TROPONIN. EKG AND TROPONIN WERE UNCHANGED AND THE MORPHINE DID NOT HELP HIS PAIN. DR. BARILLAS WAS NOTIFIED AND ORDERED FLEXERIL. PATIENT STATED HIS RIGHT SHOULDER PAIN IS REDUCED TO A 5/10 AT THIS TIME.
[2020-06-18 18:44] LABS: Vancomycin Trough 15.3 ug/mL (10-15)
[2020-06-19] VITALS (11 sets, daily range): BP systolic 104–163; BP diastolic 82–116; PULSE 81–128; RESP 13–31; TEMP 36.4–36.9; O2SAT 87–94
--- NOTE | 2020-06-19 01:06 | PC.NURSE ---
Dr. Mcneil notified of patient's heart rate 110s-140s a-fib.
[2020-06-19] MEDS: enoxaparin 100 mg/mL Syringe SUBCUT ×2 (02:08→14:06)
[2020-06-19] MEDS: enoxaparin 40 mg/0.4 mL Syringe SUBCUT (02:08)
--- NOTE | 2020-06-19 03:43 | PC.NURSE ---
Patient states that he has chronic bilateral shoulder pain. Patient states he does not want any pain medication at this time.
[2020-06-19] MEDS: bumetanide 0.25 mg/mL SDV 4 mL 1 MG IV ×2 (05:11→18:37)
[2020-06-19] MEDS: metoprolol tartrate 50 mg Tablet PO ×2 (05:11→17:17)
[2020-06-19] MEDS: acetaminophen 325 mg Tablet 650 MG PO (05:13)
[2020-06-19 05:35] LABS: Basophils # 0.1 10^3/uL (0.0-0.1); Basophils % 0.5 %; Eosinophils # 0.1 10^3/uL (0.0-0.8); Eosinophils % 1.4 %; Hematocrit 45.1 % (42.0-52.0); Hemoglobin 13.9 g/dL (11.7-16.6); Lymphocytes # 1.2 10^3/uL (0.8-4.8); Lymphocytes % 11.9 %; Mean Corpuscular HGB Conc 30.8 g/dL (30.0-36.0); Mean Corpuscular Hemoglobin 26.6 pg (28.0-34.0); Mean Corpuscular Volume 86.2 fL (80-94); Mean Platelet Volume 10.9 fL (7.4-10.4); Monocytes # 0.9 10^3/uL (0.2-0.9); Monocytes % 8.5 %; Neutrophils # 7.92 10^3/uL (1.8-7.7); Neutrophils % 77.3 %; Nucleated Red Blood Cells % 0 %; Platelet Count 318 10^3/cmm (130-400); Red Blood Count 5.23 10^6/uL (4.1-5.3); Red Cell Distribution Width 15.1 % (12.1-15.1); White Blood Count 10.2 10^3/uL (4.0-10.0)
--- NOTE | 2020-06-19 07:00 | PC.NURSE ---
Received bedside report from ARTURO Srinivasan. Patient resting in chair this morning with no complaints. Nurse will continue to monitor.
--- NOTE | 2020-06-19 08:34 | USCV_ITS ---
Jeronimo Clark Age: 55 Gender: M : 1965 Exam Date: 06/19/2020 09:02 Ordering Phys: Vernon Izquierdo MD Technologist: Matt Cramer [place] [facility] [place]: eval LV function BP: 104 / 86 HR: 94 Rhythm: Atrial fibrillation Technical Quality: Adequate MEASUREMENTS (Male / Female) Normal Values 2D ECHO LV Ejection Fraction MOD 2C 27.9 % LV Ejection Fraction 2C AL 27.7 % FINDINGS Left Ventricle Normal left ventricular cavity size. . Mildly reduced left ventricle ejection fraction. Estimated ejection fraction appears to be low normal 50%. Please note that due to beat-to- beat variation secondary to atrial fibrillation left ventricle ejection fraction cannot be accurately estimated. Right Ventricle Right Atrium Left Atrium Mitral Valve Aortic Valve Tricuspid Valve Pulmonic Valve Pericardium Aorta CONCLUSIONS Limited echo with contrast to assess LV function Normal left ventricular cavity size. . Mildly reduced left ventricle ejection fraction. Estimated ejection fraction appears to be low normal 50%. Please note that due to beat-to- beat variation secondary to atrial fibrillation left ventricle ejection fraction cannot be accurately estimated. Travis Lin MD (Electronically Signed) Final Date: 19 June 2020 19:37 S
[2020-06-19 08:52] LABS: INR 1.14 (0.8-1.2)
[2020-06-19] MEDS: doxycycline 100 mg Tablet PO ×2 (08:55→17:15)
[2020-06-19] MEDS: spironolactone 25 mg Tablet PO (08:55)
[2020-06-19] MEDS: aspirin 81 mg EC Tablet PO (08:55)
[2020-06-19] MEDS: amoxicillin-clav 875-125 mg Tablet 1 TAB PO ×2 (08:55→17:15)
[2020-06-19] MEDS: famotidine 20 mg Tablet PO ×2 (08:55→17:15)
[2020-06-19] MEDS: cloNIDine 0.1 mg Tablet PO ×2 (08:55→17:18)
[2020-06-19] MEDS: dilTIAZem 30 mg Tablet PO ×3 (08:55→20:54)
[2020-06-19 08:57] LABS: Alanine Aminotransferase 17 U/L (0-41); Albumin Level 3.5 g/dL (3.5-5.2); Alkaline Phosphatase 97 IU/L (40-130); Anion Gap 13.4 (5-19); Aspartate Amino Transferase 15 U/L (0-40); Blood Urea Nitrogen 20 mg/dL (6-20); C Reactive Protein 58.8 mg/L (0.0-4.9); Calcium 9.3 mg/dL (8.5-10.5); Carbon Dioxide 32 mmol/L (22-29); Chloride 91 mmol/L (98-107); Globulin 3.9 g/dL (1.3-4.6); Glomerular Filtration Rate 57.5 mL/min (90-130); Glucose 143 mg/dL (65-115); NT Pro B Type Natriuretic Pept 741 pg/mL (0-125); Osmolality Calculated 281 mOsm/kg (285-295); Phosphorus 3.4 mg/dL (2.5-4.5); Potassium 3.4 mmol/L (3.5-5.1); Sodium 133 mmol/L (136-145); Total Protein 7.4 g/dL (6.6-8.7)
[2020-06-19] MEDS: perflutren protein-a microsphr 0.22 mg/mL SDV 3 mL IV (09:08)
--- NOTE | 2020-06-19 11:41 | PM.PN ---
Vitals/I&O/Wt Last Vital Signs Temp 98.2 F 06/19/20 11:07 Pulse 81 06/19/20 11:07 Resp 14 06/19/20 11:07 BP 109/82 06/19/20 11:07 Pulse Ox 90 06/19/20 11:07 06/18/20 06/19/20 06/19/20 22:59 06:59 14:59 Intake Total 240 / 1120 200 / 1320 360 / 360 Output Total 875 / 1650 375 / 2025 1500 / 1500 Balance -635 / -530 -175 / -705 -1140 / -1140 Weight last 48 hrs Weight 143.426 kg Physical Exam Const: COMMON NORMALS: no acute distress and patient oriented x3 HENMT: COMMON NORMALS: normocephalic HEAD & SCALP: normocephalic Neck/C-Spine: COMMON NORMALS: no JVD Resp: COMMON NORMALS: normal respiratory effort, No retractions, No use of accessory muscles and clear to auscultation bilaterally AUSCULTATION: clear to auscultation bilaterally Cardio: COMMON NORMALS: no JVD, regular rate, regular rhythm, S1 normal heart sound present and S2 normal heart sound present RATE: regular rate RHYTHM: regular rhythm HEART SOUNDS: S1 normal heart sound present and S2 normal heart sound present GI: COMMON NORMALS: Normal to inspection, nondistended, normoactive bowel sounds present, Soft to palpation, non-tender, No hepatosplenomegaly present, no masses and no bruits PALPATION: Yes Soft to palpation and Yes No hepatosplenomegaly present Extremity: COMMON NORMALS: no calf tenderness and no pedal edema Neuro: COMMON NORMALS: patient oriented x3 Data : 06/19/20 05:10 06/19/20 08:17 A&P Assessment and plan (1) Hypertensive urgency: -Metoprolol 50 mg twice daily -Clonidine 0.1 twice daily -Spironolactone 25 mg daily -Add blood pressure medications as needed -Lovenox for DVT prophylaxis -Full code -Cardiac diet -PT OT Plan for today, continue diuresis, cardiac echo with contrast, will discuss findings with cardiology to decide if you need to do further cardiac evaluation, continue PT OT, monitor heart rates Status: Acute (2) CHF exacerbation: -Unknown type diastolic versus systolic -Likely related to uncontrolled hypertension -However given chest pain, cannot rule out underlying cardiac etiology, CAD as an etiology Plan -Admit to CSU -Fluid restrictions 1200 cc -Creatinine up to 1.3, potassium 3.4 -Replace potassium -Bumex 1 mg every 12 hours, spironolactone 25 mg daily -Monitor urine output, monitor creatinine -Cardiac echo yesterday showed a diminished ejection fraction, but it was a difficult study, will repeat cardiac echo with contrast -Telemetry monitoring -We will decide if patient needs cardiac stress testing based on further work-up Status: Acute (3) Bilateral lower extremity edema: -Likely related to cellulitis, and CHF exacerbation Status: Acute (4) Bilateral lower leg cellulitis: -With open sores -Status post debridement of open sores by Dr. Middleton -Likely venous stasis ulcers, lymphedema -De-escalate antibiotic therapy to doxycycline and Augmentin -Bilateral extremities wrapped in bandage, Unna boot -Dr. Middleton on consult Status: Acute (5) Mediastinal lymphadenopathy: -I went over scans with Dr. Kelsey, patient needs a follow-up with pulmonary as outpatient for sampling of lymph nodes, as some of the lymph nodes are over 2 cm Status: Acute (6) Chest pain: -Serial EKGs, 6-hour troponin 32, delta 4 -No active chest pain -Cardiac echo -Telemetry monitoring -Aspirin, statin, beta-val -We will consider stress testing based on work-up Status: Acute (7) New onset a-fib: -TSH within normal limits, magnesium within normal limits -Currently heart rates did elevate to the high 140s overnight -On Metroprolol 50 mg twice daily -Add Cardizem 30 every 6 hours -Therapeutic Lovenox Status: Acute Attestations Medical Necessity Statement*: Patient requires hospitalization for hypertensive urgency, CHF exacerbation, bilateral lower extremity cellulitis, A. 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
[2020-06-19] MEDS: lidocaine 1% 5 ML in potassium chloride premix 100 ML 25 ML IV (12:31)
--- NOTE | 2020-06-19 12:52 | PC.NURSE ---
Patient reports extreme burning with Potassium k-rider. Patient requested the infusion to be stopped. I spoke with Dr. Izquierdo and he said Potassium 40mEq PO would be sufficient, ONE time order.
[2020-06-19] MEDS: potassium chloride ER 20 mEq Tablet 40 MEQ PO (14:06)
--- NOTE | 2020-06-19 16:28 | PC.NURSE ---
This nurse was having a conversation with the patient and had asked him what his daughters names were. Patient was unable to recall what his 2nd daughters name was. Patient was able to answer all other questions appropriately regarding orientation. He even went into detail regarding CHF, and Afib. Patient has been increasingly more sleepy today as well. Doctor was notified and received orders to order an ABG. Nurse will continue to monitor.
[2020-06-19 16:59] LABS: ABG PCO2 48.2 mmHg (35-45); ABG PH Result 7.47 (7.35-7.45); Arterial Blood Gas Hematocrit 43.3 % (42-52); Blood Gas Allen Test Pos; Blood Gas Sample Type Arterial; HCO3 ABG 35.2 mmol/L (22-26); PO2 ABG 60.9 mmHg (80.0-100.0)
[2020-06-19 17:00] LABS: Blood Gas Operator Identificat MONRO; Blood Gas Sample Site Radial, right; Oxygen Device ROOM AIR
[2020-06-19] MEDS: atorvastatin 40 mg Tablet PO (17:16)
[2020-06-19 17:28] LABS: Basophils # 0.1 10^3/uL (0.0-0.1); Basophils % 0.6 %; Eosinophils # 0.2 10^3/uL (0.0-0.8); Eosinophils % 1.8 %; Hematocrit 43.7 % (42.0-52.0); Hemoglobin 13.6 g/dL (11.7-16.6); Lymphocytes # 1.4 10^3/uL (0.8-4.8); Lymphocytes % 16.4 %; Mean Corpuscular HGB Conc 31.1 g/dL (30.0-36.0); Mean Corpuscular Hemoglobin 26.2 pg (28.0-34.0); Monocytes # 0.8 10^3/uL (0.2-0.9); Monocytes % 9.1 %; Neutrophils # 6.29 10^3/uL (1.8-7.7); Neutrophils % 71.8 %; Nucleated Red Blood Cells % 0 %; Platelet Count 368 10^3/cmm (130-400); Red Cell Distribution Width 15.1 % (12.1-15.1); White Blood Count 8.8 10^3/uL (4.0-10.0)
[2020-06-19 17:39] LABS: Ammonia 22 umol/L (16-60)
[2020-06-19 17:49] LABS: NT Pro B Type Natriuretic Pept 502 pg/mL (0-125); Procalcitonin 0.19 ng/mL (0-0.5)
[2020-06-19 18:00] LABS: Alanine Aminotransferase 18 U/L (0-41); Albumin Level 3.5 g/dL (3.5-5.2); Alkaline Phosphatase 101 IU/L (40-130); Anion Gap 13.9 (5-19); Aspartate Amino Transferase 16 U/L (0-40); Blood Urea Nitrogen 20 mg/dL (6-20); C Reactive Protein 64.6 mg/L (0.0-4.9); Calcium 8.9 mg/dL (8.5-10.5); Carbon Dioxide 33 mmol/L (22-29); Chloride 90 mmol/L (98-107); Globulin 4.4 g/dL (1.3-4.6); Glomerular Filtration Rate 63.1 mL/min (90-130); Glucose 89 mg/dL (65-115); Osmolality Calculated 278 mOsm/kg (285-295); Potassium 3.9 mmol/L (3.5-5.1); Sodium 133 mmol/L (136-145); Total Bilirubin 0.7 mg/dL (0.15-1.2); Total Protein 7.9 g/dL (6.6-8.7)
--- NOTE | 2020-06-19 19:12 | P.PN_ITS ---
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
[2020-06-20] VITALS (11 sets, daily range): BP systolic 115–138; BP diastolic 80–95; PULSE 103–128; RESP 15–26; TEMP 36.7–37.3; O2SAT 93–96
[2020-06-20] MEDS: dilTIAZem 30 mg Tablet PO ×2 (03:05→08:11)
[2020-06-20] MEDS: enoxaparin 100 mg/mL Syringe SUBCUT ×2 (03:06→15:41)
[2020-06-20] MEDS: enoxaparin 40 mg/0.4 mL Syringe SUBCUT ×2 (03:06→15:40)
[2020-06-20 05:40] LABS: Basophils # 0.1 10^3/uL (0.0-0.1); Basophils % 0.4 %; Eosinophils # 0.1 10^3/uL (0.0-0.8); Eosinophils % 0.6 %; Hematocrit 44.6 % (42.0-52.0); Hemoglobin 13.8 g/dL (11.7-16.6); Lymphocytes # 1.2 10^3/uL (0.8-4.8); Lymphocytes % 10.4 %; Mean Corpuscular HGB Conc 30.9 g/dL (30.0-36.0); Mean Corpuscular Hemoglobin 25.8 pg (28.0-34.0); Mean Corpuscular Volume 83.5 fL (80-94); Mean Platelet Volume 9.8 fL (7.4-10.4); Neutrophils # 8.94 10^3/uL (1.8-7.7); Neutrophils % 79.3 %; Nucleated Red Blood Cells % 0 %; Platelet Count 403 10^3/cmm (130-400); Red Blood Count 5.34 10^6/uL (4.1-5.3); Red Cell Distribution Width 15.4 % (12.1-15.1); White Blood Count 11.3 10^3/uL (4.0-10.0)
[2020-06-20] MEDS: bumetanide 0.25 mg/mL SDV 4 mL 1 MG IV ×3 (05:40→23:10)
[2020-06-20] MEDS: metoprolol tartrate 50 mg Tablet PO ×2 (05:40→18:16)
[2020-06-20 05:54] LABS: INR 1.21 (0.8-1.2)
[2020-06-20 06:19] LABS: Alanine Aminotransferase 18 U/L (0-41); Albumin Level 3.7 g/dL (3.5-5.2); Alkaline Phosphatase 100 IU/L (40-130); Anion Gap 16.7 (5-19); Aspartate Amino Transferase 16 U/L (0-40); Blood Urea Nitrogen 21 mg/dL (6-20); C Reactive Protein 71.8 mg/L (0.0-4.9); Calcium 9.2 mg/dL (8.5-10.5); Carbon Dioxide 31 mmol/L (22-29); Chloride 90 mmol/L (98-107); Globulin 4.1 g/dL (1.3-4.6); Glomerular Filtration Rate 63.1 mL/min (90-130); Glucose 102 mg/dL (65-115); Magnesium 1.9 mg/dL (1.7-2.3); NT Pro B Type Natriuretic Pept 431 pg/mL (0-125); Osmolality Calculated 281 mOsm/kg (285-295); Phosphorus 3.7 mg/dL (2.5-4.5); Potassium 3.7 mmol/L (3.5-5.1); Sodium 134 mmol/L (136-145); Total Bilirubin 1.1 mg/dL (0.15-1.2); Total Protein 7.8 g/dL (6.6-8.7)
[2020-06-20] MEDS: acetaminophen 325 mg Tablet 650 MG PO (06:34)
[2020-06-20] MEDS: famotidine 20 mg Tablet PO ×2 (08:11→18:15)
[2020-06-20] MEDS: cloNIDine 0.1 mg Tablet PO ×2 (08:11→18:15)
[2020-06-20] MEDS: aspirin 81 mg EC Tablet PO (08:11)
[2020-06-20] MEDS: spironolactone 25 mg Tablet PO (08:11)
[2020-06-20] MEDS: doxycycline 100 mg Tablet PO ×2 (08:11→18:14)
[2020-06-20] MEDS: amoxicillin-clav 875-125 mg Tablet 1 TAB PO ×2 (08:12→18:15)
--- NOTE | 2020-06-20 15:20 | PM.PN ---
Subjective Subjective: Interval history: Patient was seen this morning, he tells me that he did have a bit of a difficult night, but overall is doing well, intermittent episodes of atrial fibrillation, he is relatively asymptomatic, still has lower extremity swelling, but getting better Vitals/I&O/Wt Last Vital Signs Temp 98.8 F 06/20/20 12:00 Pulse 109 H 06/20/20 12:00 Resp 26 H 06/20/20 12:00 BP 120/80 06/20/20 12:00 Pulse Ox 95 06/20/20 12:00 06/20/20 06/20/20 06/20/20 06:59 14:59 22:59 Intake Total 120 / 120 Output Total 750 / 3050 1000 / 1000 Balance -750 / -1968.333 -880 / -880 Weight last 48 hrs Weight 153.042 kg Physical Exam Const: COMMON NORMALS: no acute distress and patient oriented x3 HENMT: COMMON NORMALS: normocephalic HEAD & SCALP: normocephalic Neck/C-Spine: COMMON NORMALS: no JVD Resp: COMMON NORMALS: normal respiratory effort, No retractions, No use of accessory muscles and clear to auscultation bilaterally AUSCULTATION: clear to auscultation bilaterally Cardio: COMMON NORMALS: no JVD, regular rate, regular rhythm, S1 normal heart sound present and S2 normal heart sound present RATE: regular rate RHYTHM: regular rhythm HEART SOUNDS: S1 normal heart sound present and S2 normal heart sound present GI: COMMON NORMALS: Normal to inspection, nondistended, normoactive bowel sounds present, Soft to palpation, non-tender, No hepatosplenomegaly present, no masses and no bruits PALPATION: Yes Soft to palpation and Yes No hepatosplenomegaly present OTHER: Anasarca Extremity: COMMON NORMALS: capillary refill normal, no clubbing, cyanosis or edema, no calf tenderness and no pedal edema OTHER: Bilateral lower extremities wrapped and bandaged, has 2+ pitting edema Neuro: COMMON NORMALS: patient oriented x3 Psych: COMMON NORMALS: mental status grossly normal Data : 06/20/20 04:47 06/20/20 04:47 A&P Assessment and plan (1) Hypertensive urgency: -Metoprolol 50 mg twice daily -Clonidine 0.1 twice daily -Spironolactone 25 mg daily -Add blood pressure medications as needed -Lovenox for DVT prophylaxis -Full code -Cardiac diet -PT OT Plan for today, continue diuresis, consult cardiology, continue PT OT, monitor heart rates Status: Acute (2) CHF exacerbation: -Unknown type diastolic versus systolic -Likely related to uncontrolled hypertension -However given chest pain, cannot rule out underlying cardiac etiology, CAD as an etiology -Echocardiogram shows mildly reduced ejection fraction, at 50% Plan -Admit to CSU -Fluid restrictions 1200 cc -Replace potassium -Bumex 1 mg every 8 hours, spironolactone 25 mg daily -Monitor urine output, monitor creatinine -Cardiac echo yesterday showed a diminished ejection fraction, cardiology consulted -Telemetry monitoring -We will decide if patient needs cardiac stress testing based on further work-up Status: Acute (3) Bilateral lower extremity edema: -Likely related to cellulitis, and CHF exacerbation Status: Acute (4) Bilateral lower leg cellulitis: -With open sores -Status post debridement of open sores by Dr. Middleton -Likely venous stasis ulcers, lymphedema -De-escalate antibiotic therapy to doxycycline and Augmentin -Bilateral extremities wrapped in bandage, Unna boot -Dr. Middleton on consult Status: Acute (5) Mediastinal lymphadenopathy: -I went over scans with Dr. Kelsey, patient needs a follow-up with pulmonary as outpatient for sampling of lymph nodes, as some of the lymph nodes are over 2 cm Status: Acute (6) Chest pain: -Serial EKGs, 6-hour troponin 32, delta 4 -No active chest pain -Telemetry monitoring -Aspirin, statin, beta-val -We will consider stress testing based on work-up Status: Acute (7) New onset a-fib: -TSH within normal limits, magnesium within normal limits -Currently heart rates did elevate to the high 140s overnight -On Metroprolol 50 mg twice daily -Cardizem increased to 60 every 6 -Therapeutic Lovenox Status: Acute Attestations Medical Necessity Statement*: Plan for today continue diuresis, monitor heart rate, consult cardiology Patient requires hospitalization for CHF exacerbation, new onset A. 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
[2020-06-20] MEDS: potassium chloride ER 20 mEq Tablet 40 MEQ PO (15:39)
[2020-06-20] MEDS: dilTIAZem 30 mg Tablet 60 MG PO ×2 (15:39→20:48)
[2020-06-20] MEDS: atorvastatin 40 mg Tablet PO (18:17)
[2020-06-20 19:17] LABS: Anion Gap 12.8 (5-19); Blood Urea Nitrogen 23 mg/dL (6-20); Calcium 9.2 mg/dL (8.5-10.5); Carbon Dioxide 36 mmol/L (22-29); Chloride 87 mmol/L (98-107); Glomerular Filtration Rate 57.5 mL/min (90-130); Glucose 81 mg/dL (65-115); Osmolality Calculated 277 mOsm/kg (285-295); Potassium 3.8 mmol/L (3.5-5.1); Sodium 132 mmol/L (136-145)
--- NOTE | 2020-06-20 19:48 | PC.NURSE ---
Received bedside report from ARTURO Díaz. Patient up in chair watching tv. Remains pleasant however wants to go home. No distress observed.
--- NOTE | 2020-06-20 21:29 | PM.CONSULT ---
Providers/Reason For Consult Consulting Physican/Specialty*: Bola Gamboa MD/ Cardiology Reason for Consult*: Afib with RVR/ Hypertensive urgency/ congestive heart failure Requesting Physcian: Vernon Izquierdo MD Attending Physician: Vernon Izquierdo MD Primary Care Provider: Carolee Gifford MD History of Present Illness History of Present Illness Jeronimo Clark is a 55 year old male with past medical history of hypertension,presented to hospital with elevated blood pressure, palpitations, chest pain, shortness of breath, bilateral extremity edema, cellulitis. Patient has been experiencing increased shortness of breath over the last few months. This is also associated with a substernal chest discomfort without any radiation. His blood pressure on arrival to the hospital was very high. He was also found to be in new onset atrial fibrillation with RVR. Patient tells me that he has chronic lower extremity venous stasis changes, he was seeing wound care a few years ago, but since then has not followed up due to expense, has bilateral extremity cellulitis, open sores, he dresses them himself Patient does not have any significant prior cardiac history. Echocardiogram was performed that showed LV systolic function of around 50%. Patient is currently on Cardizem. Heart rates are fluctuating and are mostly uncontrolled. Blood pressure much better than on presentation Review of Systems Const: Denies: fever(s), chills, fatigue or malaise Eyes: Denies: change in vision or blurry vision ENMT: Denies: nasal congestion Card: Reports: chest pain, irregular heart rhythm, edema, dyspnea on exertion and orthopnea; Denies: lightheadedness or syncope Resp: Reports: dyspnea and non-productive cough; Denies: productive cough or wheezing GI: Denies: abdominal pain, nausea, vomiting, hematemesis, diarrhea, constipation, hematochezia or melena : Denies: flank pain, difficulty urinating, dysuria or urinary frequency Musc: Denies: neck pain or back pain Skin/Breast: Reports: rash and skin tenderness Neuro: Denies: headache(s), dizziness or vertigo Psych: Denies: anxiety or depression Endo: Denies: polyuria or polydipsia Meds/Allergies Home Medications and Allergies Home Medications Medication Instructions Recorded Confirmed Last Taken Type ashwagandha root extract 2 cap PO BEDTIME 06/17/20 06/17/20 06/16/20 History metoprolol succinate 50 mg PO QAM 06/17/20 06/17/20 06/17/20 10:00 History Allergies Allergy/AdvReac Type Severity Reaction Status Date / Time No Known Allergies Allergy Verified 06/17/20 12:28 Current Medications Current Medications Generic Name Dose Route Start Last Admin Trade Name Freq PRN Reason Stop Dose Admin Acetaminophen 650 mg 06/17/20 16:00 06/20/20 06:34 Acetaminophen 325 Mg Tablet PO 650 mg Q6H PRN Administration Mild/Mod Pain Or Temp >/= 101 Amoxicillin/Clavulanate Potassium 1 tab 06/18/20 18:00 06/20/20 18:15 Amoxicillin-Clav 875-125 Mg Tablet PO 1 tab BID MERRY Administration Protocol Aspirin 81 mg 06/17/20 17:00 06/20/20 08:11 Aspirin 81 Mg Ec Tablet PO 81 mg DAILY MERRY Administration Atorvastatin Calcium 40 mg 06/17/20 17:00 06/20/20 18:17 Atorvastatin 40 Mg Tablet PO 40 mg Q24H MERRY Administration Clonidine HCl 0.1 mg 06/17/20 18:00 06/20/20 18:15 Clonidine 0.1 Mg Tablet PO 0.1 mg BID MERRY Administration Diltiazem HCl 60 mg 06/20/20 21:30 06/20/20 20:48 Diltiazem 30 Mg Tablet PO 60 mg Q6H MERRY Administration Doxycycline Monohydrate 100 mg 06/18/20 18:00 06/20/20 18:14 Doxycycline 100 Mg Tablet PO 100 mg BID MERRY Administration Protocol Enoxaparin Sodium 100 mg 06/18/20 02:15 06/20/20 15:41 Enoxaparin 100 Mg/Ml Syringe SUBCUT 100 mg Q12H MERRY Administration Enoxaparin Sodium 40 mg 06/20/20 14:15 06/20/20 15:40 Enoxaparin 40 Mg/0.4 Ml Syringe SUBCUT 40 mg Q12H MERRY Administration Famotidine 20 mg 06/17/20 18:00 06/20/20 18:15 Famotidine 20 Mg Tablet PO 20 mg BID MERRY Administration Diltiazem HCl 125 mg/ Sodium 125 mls @ 0 mls/hr 06/17/20 14:30 06/18/20 05:37 Chloride IV Infused .Q0M MERRY Titration Protocol Per Protocol Metoprolol Tartrate 50 mg 06/18/20 05:00 06/20/20 18:16 Metoprolol Tartrate 50 Mg Tablet PO 50 mg Q12H MERRY Administration Potassium Chloride 40 meq 06/20/20 15:25 06/20/20 15:39 Potassium Chloride Er 20 Meq Tablet PO 40 meq DAILY MERRY Administration Spironolactone 25 mg 06/18/20 09:00 06/20/20 08:11 Spironolactone 25 Mg Tablet PO 25 mg DAILY MERRY Administration PFSH Acute PFSH: Medical History History of hypertension Surgical History History of inguinal hernia repair Family History Father Cancer Prostate cancer Mother CAD (coronary artery disease) Social History Smoking and tobacco status: never smoked Alcohol intake: current Alcohol intake frequency: few times a month Current occupation: [employer] Vitals/I&O/Wt Last Vital Signs Temp 98.6 F 06/20/20 19:15 Pulse 114 H 06/20/20 19:15 Resp 20 H 06/20/20 19:15 BP 135/85 06/20/20 19:15 Pulse Ox 94 06/20/20 19:15 06/20/20 06/20/20 06/20/20 06:59 14:59 22:59 Intake Total 120 / 120 360 / 480 Output Total 750 / 3050 1000 / 1000 900 / 1900 Balance -750 / -1968.333 -880 / -880 -540 / -1420 Weight last 48 hrs Weight 337 lb 6.4 oz Physical Exam Narrative: EXAM NARRATIVE: GENERAL: Patient is alert, awake and oriented x3. [] NECK: No jugular vein distension. [] HEENT: No cyanosis. No icterus. No pallor. [] HEART: Regular S1 and S2. No murmur, rub or gallop. [] LUNGS: Clear to auscultate bilaterally. [] ABDOMEN: Soft, nontender and nondistended. Positive bowel sounds. No guarding, rebound or tenderness. [] CENTRAL NERVOUS SYSTEM: Grossly nonfocal. [] EXTREMITIES: Lower extremities with 2+ edema bilaterally. Has dressing applied on the lower extremities. A&P Assessment and plan (1) Venous ulcer of left leg: Status: Acute (2) PVD (peripheral vascular disease): Status: Acute (3) New onset a-fib: Status: Acute (4) Chest pain: Status: Acute (5) Bilateral lower extremity edema: Status: Acute (6) CHF exacerbation: Status: Acute (7) Hypertension: Status: Acute Qualifiers: Hypertension type: essential hypertension Qualified Code(s): I10 - Essential (primary) hypertension Patient is new onset atrial fibrillation and CHF exacerbation. Will recommend adding digoxin. He is already on Cardizem. Therapeutic anticoagulation. Patient does have chest tightness symptoms. Will recommend proceeding with ischemic work-up with a stress test. Continue IV diuretics. Accurate I&O's. Monitor renal function. Thank you for involving us with care of this patient. We will continue to follow. Please call with questions. Coding Level of Care Code Acute Speech Scientist for [facility] Fwd Diagnoses Venous ulcer of left leg I83.029; L97.929 PVD (peripheral vascular disease) I73.9 New onset a-fib I48.91 Chest pain R07.9 Bilateral lower extremity edema R60.0 CHF exacerbation I50.9 Hypertension I10 Hypertension type: essential hypertension
[2020-06-21] VITALS (13 sets, daily range): BP systolic 110–154; BP diastolic 81–108; PULSE 90–110; RESP 12–16; TEMP 36.8–36.9; O2SAT 91–97; BMI 43.7
[2020-06-21] MEDS: dilTIAZem 30 mg Tablet 60 MG PO ×4 (02:48→20:39)
[2020-06-21] MEDS: enoxaparin 40 mg/0.4 mL Syringe SUBCUT ×2 (02:48→15:37)
[2020-06-21] MEDS: enoxaparin 100 mg/mL Syringe SUBCUT ×2 (02:48→15:37)
[2020-06-21] MEDS: metoprolol tartrate 50 mg Tablet PO ×2 (04:50→17:56)
[2020-06-21 05:13] LABS: Basophils % 0.4 %; Eosinophils # 0.1 10^3/uL (0.0-0.8); Hematocrit 45.1 % (42.0-52.0); Hemoglobin 14.1 g/dL (11.7-16.6); Lymphocytes # 1.6 10^3/uL (0.8-4.8); Lymphocytes % 15.4 %; Mean Corpuscular HGB Conc 31.3 g/dL (30.0-36.0); Mean Corpuscular Hemoglobin 26.4 pg (28.0-34.0); Mean Corpuscular Volume 84.5 fL (80-94); Mean Platelet Volume 9.5 fL (7.4-10.4); Monocytes % 9.8 %; Neutrophils % 73.1 %; Nucleated Red Blood Cells % 0 %; Platelet Count 402 10^3/cmm (130-400); Red Blood Count 5.34 10^6/uL (4.1-5.3); Red Cell Distribution Width 15.4 % (12.1-15.1); White Blood Count 10.3 10^3/uL (4.0-10.0)
[2020-06-21 05:51] LABS: Alanine Aminotransferase 20 U/L (0-41); Albumin Level 3.5 g/dL (3.5-5.2); Alkaline Phosphatase 105 IU/L (40-130); Aspartate Amino Transferase 19 U/L (0-40); Blood Urea Nitrogen 24 mg/dL (6-20); Calcium 9.4 mg/dL (8.5-10.5); Carbon Dioxide 30 mmol/L (22-29); Chloride 90 mmol/L (98-107); Creatinine Clr Calc Pharmacy 120.0273; Globulin 4.9 g/dL (1.3-4.6); Glomerular Filtration Rate 69.8 mL/min (90-130); Glucose 95 mg/dL (65-115); Magnesium 2.1 mg/dL (1.7-2.3); NT Pro B Type Natriuretic Pept 406 pg/mL (0-125); Osmolality Calculated 280 mOsm/kg (285-295); Phosphorus 3.6 mg/dL (2.5-4.5); Sodium 133 mmol/L (136-145); Total Bilirubin 1.1 mg/dL (0.15-1.2); Total Protein 8.4 g/dL (6.6-8.7)
[2020-06-21 05:57] LABS: Anion Gap 16.4 (5-19); Potassium 3.4 mmol/L (3.5-5.1)
[2020-06-21] MEDS: doxycycline 100 mg Tablet PO ×2 (08:40→17:56)
[2020-06-21] MEDS: amoxicillin-clav 875-125 mg Tablet 1 TAB PO ×2 (08:40→17:56)
[2020-06-21] MEDS: cloNIDine 0.1 mg Tablet PO ×2 (08:41→17:56)
[2020-06-21] MEDS: potassium chloride ER 10 mEq Tablet 30 MEQ PO ×2 (08:41→18:01)
[2020-06-21] MEDS: aspirin 81 mg EC Tablet PO (08:42)
[2020-06-21] MEDS: famotidine 20 mg Tablet PO ×2 (08:42→17:56)
[2020-06-21] MEDS: spironolactone 25 mg Tablet PO (08:42)
[2020-06-21] MEDS: bumetanide 0.25 mg/mL SDV 4 mL 1 MG IV ×3 (08:56→23:07)
--- NOTE | 2020-06-21 10:53 | ECG_ITS ---
[facility] Test Date: 2020-06-22 Pat Name: Jeronimo Clark Department: Room: 105 Gender: Male Fiscal Specialist: : 1965 Requested By: Vernon Izquierdo Order Number: [id number] Mani MD: Dalia Rabago M.D. Interpretive Statements NAME OF STUDY: LEXISCAN SESTAMIBI STRESS TEST INDICATION: Chest Pain PROCEDURE: At the baseline, the blood pressure was 122/96 mmHg, oxygen saturation 94% with a heart rate of 93 bpm. The electrocardiogram showed atrial fibrillation with controlled ventricular response, left axis deviation. Poor anterior R wave progression and nonspecific ST-T wave changes. The Lexiscan was infused over a period of 20 seconds. A total of 0.4 milligrams of Lexiscan was infused. The stress phase was continued for a total of 5 minutes. Heart rate at the end of the stress phase was 104 bpm, oxygen saturation 93% with a blood pressure of 107/80 mmHg. The EKG at the peak infusion revealed atrial fibrillation with rapid ventricle response at 104 bpm with no significant ST-T wave changes. Sestamibi was injected 20 seconds after the Lexiscan infusion. Blood pressure at the end of the recovery phase was 125/85 mmHg, oxygen saturation 92% with a heart rate of 102 beats per minute. CONCLUSION: 1. No significant EKG changes with the LexiScan infusion. 2. No LexiScan induced chest pain or cardiac arrhythmia. 3. Normal blood pressure and heart rate response. 4. Sestamibi/sestamibi perfusion scan pending; see separate report. Electronically Signed On 06-22-2020 12:58:05 CDT by Dalia Rabago M.D. [id number]
[2020-06-21] MEDS: digoxin 250 mcg Tablet PO (11:10)
[2020-06-21] MEDS: metOLazone 5 MG Tablet 10 MG PO (11:11)
--- NOTE | 2020-06-21 11:29 | P.PN_ITS ---
Subjective Subjective: Interval history: Patient tells me that he did not get a lot of sleep overnight, he overall feels better, no fevers, no chills, no nausea, no vomiting, no chest pain, he continues to have intermittent episodes of atrial fibrillation Vitals/I&O/Wt Last Vital Signs Temp 98.3 F 06/21/20 03:11 Pulse 110 H 06/21/20 11:10 Resp 16 06/21/20 07:18 BP 154/108 06/21/20 08:41 Pulse Ox 91 06/21/20 07:18 06/20/20 06/21/20 06/21/20 22:59 06:59 14:59 Intake Total 360 / 480 240 / 240 Output Total 900 / 1900 850 / 2750 Balance -540 / -1420 -850 / -2270 240 / 240 Weight last 48 hrs Weight 153.042 kg Physical Exam Const: COMMON NORMALS: no acute distress and patient oriented x3 HENMT: COMMON NORMALS: normocephalic HEAD & SCALP: normocephalic Neck/C-Spine: COMMON NORMALS: no JVD Resp: COMMON NORMALS: normal respiratory effort, No retractions, No use of accessory muscles and clear to auscultation bilaterally AUSCULTATION: clear to auscultation bilaterally Cardio: COMMON NORMALS: no JVD, S1 normal heart sound present and S2 normal heart sound present RATE: tachycardic RHYTHM: abnormal rhythm HEART SOUNDS: S1 normal heart sound present and S2 normal heart sound present GI: COMMON NORMALS: Normal to inspection, nondistended, normoactive bowel sounds present, Soft to palpation, non-tender, No hepatosplenomegaly present, no masses and no bruits PALPATION: Yes Soft to palpation and Yes No hepatosplenomegaly present Extremity: OTHER: Bilateral lower extremities wrapped and bandaged, has 2+ pitting edema Neuro: COMMON NORMALS: patient oriented x3 Psych: COMMON NORMALS: mental status grossly normal Data : 06/21/20 04:47 06/21/20 04:47 A&P Assessment and plan (1) Hypertensive urgency: -Metoprolol 50 mg twice daily -Clonidine 0.1 twice daily -Spironolactone 25 mg daily -Add blood pressure medications as needed -Lovenox for DVT prophylaxis -Full code -Cardiac diet -PT OT Plan for today, continue diuresis, consult cardiology, continue PT OT, monitor heart rates, n.p.o. midnight, plan for stress test tomorrow Status: Acute (2) CHF exacerbation: -Likely mixed systolic and diastolic -Likely related to uncontrolled hypertension -However given chest pain, decreased ejection fraction, cannot rule out under lying cardiac etiology, CAD as an etiology -Echocardiogram shows mildly reduced ejection fraction, at 50% Plan -Admit to CSU -Fluid restrictions 1200 cc -Replace potassium -Bumex 1 mg every 8 hours, spironolactone 25 mg daily, metolazone 10 mg once -Monitor urine output, monitor creatinine -Cardiac echo yesterday showed a diminished ejection fraction, cardiology consulted -Telemetry monitoring -N.p.o. midnight, for cardiac stress test tomorrow Plan for today continue PT OT, continue diuresis, add digoxin for atrial fibrillation, monitor heart rates, n.p.o. midnight, for stress test tomorrow m orning Status: Acute (3) Bilateral lower extremity edema: -Likely related to cellulitis, and CHF exacerbation Status: Acute (4) Bilateral lower leg cellulitis: -With open sores -Status post debridement of open sores by Dr. Middleton -Likely venous stasis ulcers, lymphedema -De-escalate antibiotic therapy to doxycycline and Augmentin -Bilateral extremities wrapped in bandage, Unna boot -Dr. Middleton on consult Status: Acute (5) Mediastinal lymphadenopathy: -I went over scans with Dr. Kelsey, patient needs a follow-up with pulmonary as outpatient for sampling of lymph nodes, as some of the lymph nodes are over 2 cm Status: Acute (6) Chest pain: -Serial EKGs, 6-hour troponin 32, delta 4 -No active chest pain -Telemetry monitoring -Aspirin, statin, beta-val -N.p.o. midnight, for cardiac stress test tomorrow morning Status: Acute (7) New onset a-fib: -TSH within normal limits, magnesium within normal limits -Currently heart rates are difficult to control -On Metroprolol 50 mg twice daily -Cardizem increased to 60 every 6 -Digoxin load to 250 mcg once p.o., creatinine 1.1 -Therapeutic Lovenox, on discharge switched to Eliquis Status: Acute Attestations Medical Necessity Statement*: Patient requires hospitalization for CHF exacer bation, chest pain, new onset A. fib, proceeding tocardiac stress test tomorrow Coding Level of Care Code Acute Hardware Developer for [facility] Fwd Diagnoses Hypertensive urgency I16.0 CHF exacerbation I50.9 Bilateral lower extremity edema R60.0 Bilateral lower leg cellulitis L03.116; L03.115 Mediastinal lymphadenopathy R59.0 Chest pain R07.9 New onset a-fib I48.91
--- NOTE | 2020-06-21 12:27 | P.PN_ITS ---
Subjective Subjective: Interval history: Patient is feeling better. No complaints of chest pain. Heart rate is better controlled since we started him on Digoxin. BP is controlled Vitals/I&O/Wt Last Vital Signs Temp 98.3 F 06/21/20 03:11 Pulse 110 H 06/21/20 11:10 Resp 16 06/21/20 07:18 BP 154/108 06/21/20 08:41 Pulse Ox 91 06/21/20 07:18 06/20/20 06/21/20 06/21/20 22:59 06:59 14:59 Intake Total 360 / 480 600 / 600 Output Total 900 / 1900 850 / 2750 Balance -540 / -1420 -850 / -2270 600 / 600 Weight last 48 hrs Weight 337 lb 6.4 oz Physical Exam Narrative: EXAM NARRATIVE: GENERAL: Patient is alert, awake and oriented x3. [] NECK: No jugular vein distension. [] HEENT: No cyanosis. No icterus. No pallor. [] HEART: Regular S1 and S2. No murmur, rub or gallop. [] LUNGS: Clear to auscultate bilaterally. [] ABDOMEN: Soft, nontender and nondistended. Positive bowel sounds. No guarding, rebound or tenderness. [] CENTRAL NERVOUS SYSTEM: Grossly nonfocal. [] EXTREMITIES: Lower extremities with 2+ edema bilaterally. Has dressing applied on the lower extremities. Data : 06/21/20 04:47 06/21/20 04:47 A&P Assessment and plan (1) Venous ulcer of left leg: Status: Acute (2) PVD (peripheral vascular disease): Status: Acute (3) New onset a-fib: Status: Acute (4) Chest pain: Status: Acute (5) Bilateral lower extremity edema: Status: Acute (6) CHF exacerbation: Status: Acute (7) Hypertension: Status: Acute Qualifiers: Hypertension type: essential hypertension Qualified Code(s): I10 - Essential (primary) hypertension Patient is new onset atrial fibrillation and CHF exacerbation. Patient received digoxin. He is already on Cardizem. Uptitrate as tolerated Therapeutic anticoagulation. Patient does have chest tightness symptoms. Will recommend proceeding with ischemic work-up with a stress test. Continue IV diuretics. Accurate I&O's. Monitor renal function. Thank you for involving us with care of this patient. We will continue to britney alvares. Please call with questions. Attestations 2 Medical Necessity Statement*: Care expected to cross 2 midnights. Coding Level of Care Code Acute Workers Compensation Manager for [facility] Fwd Diagnoses Venous ulcer of left leg I83.029; L97.929 PVD (peripheral vascular disease) I73.9 New onset a-fib I48.91 Chest pain R07.9 Bilateral lower extremity edema R60.0 CHF exacerbation I50.9 Hypertension I10 Hypertension type: essential hypertension
[2020-06-21] MEDS: atorvastatin 40 mg Tablet PO (18:00)
--- NOTE | 2020-06-21 22:01 | PC.NURSE ---
Patient has no complaints at this time. Will monitor.
[2020-06-22] VITALS (11 sets, daily range): BP systolic 107–147; BP diastolic 67–95; PULSE 78–108; RESP 12–21; TEMP 36.7–36.9; O2SAT 91–97
[2020-06-22] MEDS: enoxaparin 100 mg/mL Syringe SUBCUT ×2 (03:25→14:13)
[2020-06-22] MEDS: dilTIAZem 30 mg Tablet 60 MG PO ×4 (03:25→21:10)
[2020-06-22] MEDS: metoprolol tartrate 50 mg Tablet PO ×2 (03:25→17:29)
[2020-06-22] MEDS: enoxaparin 40 mg/0.4 mL Syringe SUBCUT ×2 (03:25→14:13)
--- NOTE | 2020-06-22 03:29 | PC.NURSE ---
Patient voided in the toilet. Patient reeducated to void in urinal in order for accuratue output measurments. Patient verbalized understanding.
[2020-06-22 06:04] LABS: Basophils # 0.1 10^3/uL (0.0-0.1); Basophils % 0.7 %; Eosinophils # 0.2 10^3/uL (0.0-0.8); Hematocrit 44.4 % (42.0-52.0); Hemoglobin 13.8 g/dL (11.7-16.6); Lymphocytes # 1.4 10^3/uL (0.8-4.8); Lymphocytes % 15.4 %; Mean Corpuscular HGB Conc 31.1 g/dL (30.0-36.0); Mean Corpuscular Hemoglobin 26.2 pg (28.0-34.0); Mean Corpuscular Volume 84.3 fL (80-94); Mean Platelet Volume 10.2 fL (7.4-10.4); Monocytes # 0.9 10^3/uL (0.2-0.9); Monocytes % 10.2 %; Neutrophils % 71.5 %; Nucleated Red Blood Cells % 0 %; Platelet Count 394 10^3/cmm (130-400); Red Blood Count 5.27 10^6/uL (4.1-5.3); Red Cell Distribution Width 15.4 % (12.1-15.1); White Blood Count 9.2 10^3/uL (4.0-10.0)
[2020-06-22 06:39] LABS: Alanine Aminotransferase 27 U/L (0-41); Albumin Level 3.7 g/dL (3.5-5.2); Alkaline Phosphatase 114 IU/L (40-130); Blood Urea Nitrogen 32 mg/dL (6-20); Calcium 9.3 mg/dL (8.5-10.5); Carbon Dioxide 33 mmol/L (22-29); Chloride 88 mmol/L (98-107); Globulin 4.6 g/dL (1.3-4.6); Glomerular Filtration Rate 48.8 mL/min (90-130); Glucose 95 mg/dL (65-115); Magnesium 2.2 mg/dL (1.7-2.3); NT Pro B Type Natriuretic Pept 316 pg/mL (0-125); Osmolality Calculated 289 mOsm/kg (285-295); Phosphorus 4.4 mg/dL (2.5-4.5); Sodium 136 mmol/L (136-145); Total Bilirubin 0.9 mg/dL (0.15-1.2); Total Protein 8.3 g/dL (6.6-8.7)
[2020-06-22 06:43] LABS: Anion Gap 18.6 (5-19); Aspartate Amino Transferase 31 U/L (0-40); Potassium 3.6 mmol/L (3.5-5.1)
--- NOTE | 2020-06-22 07:31 | PC.NURSE ---
off unit to cdl for nuc med
[2020-06-22] MEDS: regadenoson 0.4 Mg/5 ml Syringe IVP (08:07)
--- NOTE | 2020-06-22 08:07 | SUR.PREOP ---
Patient reports no pain or discomfort prior to the start of the procedure.
[2020-06-22] MEDS: cloNIDine 0.1 mg Tablet PO (09:45)
[2020-06-22] MEDS: amoxicillin-clav 875-125 mg Tablet 1 TAB PO ×2 (09:45→17:28)
[2020-06-22] MEDS: aspirin 81 mg EC Tablet PO (09:45)
[2020-06-22] MEDS: doxycycline 100 mg Tablet PO ×2 (09:45→17:28)
[2020-06-22] MEDS: famotidine 20 mg Tablet PO ×2 (09:46→17:28)
[2020-06-22] MEDS: spironolactone 25 mg Tablet PO (09:46)
[2020-06-22] MEDS: potassium chloride ER 10 mEq Tablet 30 MEQ PO ×2 (09:50→17:28)
--- NOTE | 2020-06-22 10:53 | NMCV_ITS ---
NM sally perf SPECT r/s* [id number] Jeronimo Clark Age: 55 Gender: M : 1965 Exam Date: 06/22/2020 10:53 Ordering Phys: Vernon Izquierdo MD Technologist: EVA Singh Exam Location: [facility] Indications: SOB STRESS TEST Please see separate stress test report in [facility] for full findings IMAGE PROTOCOL Rest/Stress 1 Lexiscan Day Radiopharmaceutical Dose (mCi) Administration Site Administered by Rest: Tc-99m 11.0 IV EVA Sorenson Sestamibi Stress:Tc-99m 33.0 IV EVA Singh Sestamimillie Rest: 22-Jun-2020 60 Discovery 630 Stress: 22-Jun-2020 45 Discovery 630 0.4mg Lexiscan. Supine position only as patient was unable to lay prone. SPECT RESULTS Technical Quality: Good Raw Data Analysis: Soft tissue attenuation Image Corrections: No attenuation or motion correction applied Summed Stress Score: 0 Summed Rest Score: 1 Summed Difference Score: 0 PERFUSION FINDINGS Small sized perfusion abnormality of mid inferior wall on rest images with improved tracer uptake on stress images. This is suggestive of attenuation artifact. FUNCTIONAL RESULTS (calculated via Gated SPECT) Stress Image LV EF (%): 54 Stress EDV (mL):163 TID: 0.91 Stress ESV (mL):75 FUNCTIONAL FINDINGS: The left ventricle is normal in size. Transient Ischemia Dilatation of 0.91. There is normal left ventricular systolic function. The left ventricular ejection fraction is normal with a value of 54%. There is normal left ventricular wall thickening with no regional wall motion abnormality. IMPRESSIONS 1. Myocardial perfusion imaging is normal. 2. Overall left ventricular systolic function is normal without regional wall motion abnormalities. 3. The left ventricular ejection fraction is normal with a value of 54%. 4. No significant EKG changes with Lexiscan infusion. 5. Scan indicates low risk for cardiac events. Dalia Rabago MD (Electronically Signed) Final Date: 22 June 2020 13:01 S
[2020-06-22] MEDS: atorvastatin 40 mg Tablet PO (17:28)
--- NOTE | 2020-06-22 19:26 | P.PN_ITS ---
Subjective Subjective: Interval history: Overall feeling better, had increased creatinine overnight and diuretics have been held. Lymphedema wraps remain in place. No chest pain, not coughing, has been up with therapy. Is still making urine but not as much. Vitals/I&O/Wt Last Vital Signs Temp 98.0 F 06/22/20 15:07 Pulse 97 06/22/20 15:07 Resp 14 06/22/20 15:07 BP 120/95 06/22/20 17:29 Pulse Ox 97 06/22/20 15:07 06/22/20 06/22/20 06/22/20 06:59 14:59 22:59 Intake Total 480 / 1440 360 / 360 Output Total 800 / 800 Balance 480 / -10 360 / 360 -800 / -440 Weight last 48 hrs Weight 154.448 kg Physical Exam Narrative: EXAM NARRATIVE: Awake and alert, sitting in chair with legs hanging down Extraocular movements are intact, moist mucous membranes Neck is large but supple Lungs are clear to auscultation bilaterally without any wheezes or rhonchi noted Cardiovascular exam reveals an irregularly irregular rhythm Abdomen is soft Lymphedema wraps are in place to the distal extremities, does look like there is some improvement in the degree of swelling compared to prior although this is the first time I have examined him. Impression is based on space underneath the lymphedema wraps Speech is clear, moves all extremities Data : 06/22/20 04:37 06/22/20 04:37 A&P Assessment and plan (1) Acute kidney injury: In the setting of diuresis Status: Acute (2) Hypertensive urgency: Noted at admission, improved with the course of the hospital stay. He was put on IV diuresis in the form of Bumex, oral spironolactone, clonidine at twice daily dosing in addition to Cardizem and metoprolol that were started for rate control of atrial fibrillation. I think that risk of significant rebound hypertension is something to keep in mind and if we can avoid chronic use of clonidine that would probably be my preference. Status: Acute (3) New onset a-fib: Currently with better rate control on oral diltiazem and oral metoprolol, received 1 dose of the day but it was not ordered to continue and has generally done okay while at rest. Status: Acute (4) CHF exacerbation: Clinical diagnosis at the time of admission. I wonder if symptoms were not from A. fib with RVR. Initial echocardiogram was of difficult study due to body habitus and suggested some wall motion abnormalities and decreased EF. Recommend ation was for echocardiogram with contrast. Stress testing was done revealing apparent a normal ejection fraction without any wall motion abnormalities identified. Peak BNP was 2561. I suspect that there probably is a component of diastolic dysfunction contributing but appears currently to have preserved ejection fraction. Status: Acute Qualifiers: Heart failure type: unspecified Qualified Code(s): I50.9 - Heart failure, unspecified (5) Venous ulcer of left leg: Chronic in nature, status post evaluation and debridement by Dr. Middleton early in the course of the hospital stay initial consultation note having recommendations for outpatient follow-up. Status: Acute (6) Bilateral lower leg cellulitis: Currently with lymphedema wraps. Edema is in part due to constant sitting with legs hanging down plus or minus a component of diastolic dysfunction. Status: Acute (7) PVD (peripheral vascular disease): Status: Chronic (8) Mediastinal lymphadenopathy: Status: Acute (9) BMI 40.0-44.9, adult: Status: Chronic Additional A&P Information Work-up done during the course of this hospital stay to date includes venous duplex of the lower extremities, CTA of the chest, echocardiogram, stress testi ng, chest x-ray, laboratory studies to include sed rate, D-dimer, TSH, A1c, serial cardiac enzymes, lipid panel, BNP, ammonia level, procalcitonin analysis Continue inpatient management Stop IV diuresis For the time being we will keep fluid restriction in place I have held spironolactone currently Decreased dose of potassium replacement with above Change clonidine to as needed Continue current every 6 hours diltiazem dosing but plan is ultimately to change that to at least twice a day if not once a day Continue beta-val at current dosing Can consider additional digoxin dosing as per cardiology recommendations. Has received just 1 dose without load that I can see, and at this point I have not ordered it particularly in setting of increasing creatinine with heart rate that is generally been controlled today Recheck renal function in the morning I will note that patient has Ashweganda root on his home medication list. Need to probably look that up a bit further and ensure it does not have any contribution to presenting symptoms Presently on treatment dose Lovenox, will continue this with ultimate plan to change management expert to oral anticoagulation Continue on oral Augmentin and doxycycline for wounds Will need follow-up with Dr. Middleton Continue lymphedema wraps Need to continue to encourage lower extremity leg elevation We will need outpatient follow-up regarding mediastinal adenopathy Will need follow-up with Carolee Gifford, primary care provider Supportive care otherwise Plans were discussed with patient and he was given an opportunity to ask questions Full code Attestations Medical Necessity Statement*: Requires ongoing inpatient care for monitoring of renal function, overall volume status in the setting of cardiovascular issues noted above. Medication adjustments and other orders as indicated. Hopefully he will be ready for discharge in the next day or 2 if heart rate, blood pressures and renal function remained stable. Coding Level of Care Code Acute Instant Printer Operator for [facility] Fwd Diagnoses Acute kidney injury N17.9 Hypertensive urgency I16.0 New onset a-fib I48.91 CHF exacerbation I50.9 Heart failure type: unspecified Venous ulcer of left leg I83.029; L97.929 Bilateral lower leg cellulitis L03.116; L03.115 PVD (peripheral vascular disease) I73.9 Mediastinal lymphadenopathy R59.0 BMI 40.0-44.9, adult Z68.41
--- NOTE | 2020-06-22 22:26 | PM.PN ---
Subjective Subjective: Interval history: Patient is doing well. Denies chest pain or shortness of breath. His renal function has worsened today with creatinine of 1.5 today. Holding diuretics for now. Stress test performed today was negative for ischemia Vitals/I&O/Wt Last Vital Signs Temp 98.3 F 06/22/20 19:39 Pulse 86 06/22/20 19:39 Resp 12 06/22/20 19:39 BP 140/90 06/22/20 19:39 Pulse Ox 91 06/22/20 19:39 06/22/20 06/22/20 06/22/20 06:59 14:59 22:59 Intake Total 480 / 1440 360 / 360 Output Total 800 / 800 Balance 480 / -10 360 / 360 -800 / -440 Weight last 48 hrs Weight 340 lb 8 oz Physical Exam Narrative: EXAM NARRATIVE: GENERAL: Patient is alert, awake and oriented x3. [] NECK: No jugular vein distension. [] HEENT: No cyanosis. No icterus. No pallor. [] HEART: Regular S1 and S2. No murmur, rub or gallop. [] LUNGS: Clear to auscultate bilaterally. [] ABDOMEN: Soft, nontender and nondistended. Positive bowel sounds. No guarding, rebound or tenderness. [] CENTRAL NERVOUS SYSTEM: Grossly nonfocal. [] EXTREMITIES: Lower extremities with 2+ edema bilaterally. Has dressing applied on the lower extremities. Data : 06/22/20 04:37 06/22/20 04:37 A&P Assessment and plan (1) Venous ulcer of left leg: Status: Acute (2) PVD (peripheral vascular disease): Status: Chronic (3) New onset a-fib: Status: Acute (4) Chest pain: Status: Acute (5) Bilateral lower extremity edema: Status: Acute (6) CHF exacerbation: Status: Acute Qualifiers: Heart failure type: unspecified Qualified Code(s): I50.9 - Heart failure, unspecified (7) Hypertension: Status: Chronic Qualifiers: Hypertension type: essential hypertension Qualified Code(s): I10 - Essential (primary) hypertension Patient is new onset atrial fibrillation and CHF exacerbation. Cardizem 60mg q hours. Can switch to long acting cardizem 240mg tomorrow Can switch to eliquis 5mg BID Continue metoprolol 50mg BID Stress test is negative for ischemia Holding diuretics today as renal function worsened. Will switch to PO tomorrow. Check renal function in AM Accurate I&O's. Monitor renal function. Thank you for involving us with care of this patient. We will continue to follow. Please call with questions. Attestations Medical Necessity Statement*: Care expected to cross 2 midnights. Coding Level of Care Code Acute [facility] Manager for g Fwd Diagnoses Venous ulcer of left leg I83.029; L97.929 PVD (peripheral vascular disease) I73.9 New onset a-fib I48.91 Chest pain R07.9 Bilateral lower extremity edema R60.0 CHF exacerbation I50.9 Heart failure type: unspecified Hypertension I10 Hypertension type: essential hypertension
[2020-06-23] VITALS (54 sets, daily range): BP systolic 123–126; BP diastolic 81–95; PULSE 54–96; RESP 11–21; TEMP 36.6; O2SAT 92–95
[2020-06-23] MEDS: dilTIAZem 30 mg Tablet 60 MG PO ×2 (03:39→09:07)
[2020-06-23 05:15] LABS: Anion Gap 12.5 (5-19); Blood Urea Nitrogen 32 mg/dL (6-20); Calcium 9.1 mg/dL (8.5-10.5); Carbon Dioxide 33 mmol/L (22-29); Chloride 90 mmol/L (98-107); Glomerular Filtration Rate 57.5 mL/min (90-130); Glucose 106 mg/dL (65-115); Magnesium 2.3 mg/dL (1.7-2.3); Osmolality Calculated 281 mOsm/kg (285-295); Phosphorus 3.5 mg/dL (2.5-4.5); Potassium 3.5 mmol/L (3.5-5.1); Sodium 132 mmol/L (136-145)
[2020-06-23] MEDS: metoprolol tartrate 50 mg Tablet PO (06:00)
--- NOTE | 2020-06-23 08:40 | PM.PN ---
Subjective Subjective: Interval history: Patient is doing well. No complaints of chest pain, shortness of breath or palpitations Vitals/I&O/Wt Last Vital Signs Temp 98 F 06/23/20 00:00 Pulse 82 06/23/20 06:00 Resp 20 H 06/23/20 04:55 BP 123/95 06/23/20 04:55 Pulse Ox 92 06/23/20 00:00 06/22/20 06/23/20 06/23/20 22:59 06:59 14:59 Intake Total 120 / 480 Output Total 1100 / 1100 Balance -1100 / -740 120 / -620 Physical Exam Narrative: EXAM NARRATIVE: GENERAL: Patient is alert, awake and oriented x3. [] NECK: No jugular vein distension. [] HEENT: No cyanosis. No icterus. No pallor. [] HEART: Regular S1 and S2. No murmur, rub or gallop. [] LUNGS: Clear to auscultate bilaterally. [] ABDOMEN: Soft, nontender and nondistended. Positive bowel sounds. No guarding, rebound or tenderness. [] CENTRAL NERVOUS SYSTEM: Grossly nonfocal. [] EXTREMITIES: Lower extremities with 2+ edema bilaterally. Has dressing applied on the lower extremities. Data : 06/22/20 04:37 06/23/20 04:26 A&P Assessment and plan (1) Venous ulcer of left leg: Status: Acute (2) PVD (peripheral vascular disease): Status: Chronic (3) New onset a-fib: Status: Inactive (4) Chest pain: Status: Resolved Qualifiers: Chest pain type: precordial pain Qualified Code(s): R07.2 - Precordial pain (5) Bilateral lower extremity edema: Status: Acute (6) CHF exacerbation: Status: Resolved Qualifiers: Heart failure type: unspecified Qualified Code(s): I50.9 - Heart failure, unspecified (7) Hypertension: Status: Chronic Qualifiers: Hypertension type: essential hypertension Qualified Code(s): I10 - Essential (primary) hypertension Patient is new onset atrial fibrillation and CHF exacerbation. Switch to Cardizem 240mg daily Eliquis 5 mg BID Continue metoprolol 50mg BID Stress test is negative for ischemia Renal function has started improving. Restart Bumex 1 mg daily from tomorrow Thank you for involving us with care of this patient. Patient is stable to be discharged from cardiology standpoint. Please call with questions. Attestations Medical Necessity Statement*: Care expected to cross 2 midnights Coding Level of Care Code Acute Cert Occupational Therapy Asst for Chg Fwd Diagnoses Venous ulcer of left leg I83.029; L97.929 PVD (peripheral vascular disease) I73.9 New onset a-fib I48.91 Chest pain R07.2 Chest pain type: precordial pain Bilateral lower extremity edema R60.0 CHF exacerbation I50.9 Heart failure type: unspecified Hypertension I10 Hypertension type: essential hypertension
[2020-06-23] MEDS: potassium chloride ER 20 mEq Tablet PO (09:07)
[2020-06-23] MEDS: doxycycline 100 mg Tablet PO (09:07)
[2020-06-23] MEDS: aspirin 81 mg EC Tablet PO (09:07)
[2020-06-23] MEDS: amoxicillin-clav 875-125 mg Tablet 1 TAB PO (09:07)
[2020-06-23] MEDS: famotidine 20 mg Tablet PO (09:07)
--- NOTE | 2020-06-23 09:31 | PM.DCS ---
Discharge Providers Date of Admission: 06/17/20 14:02 Date of Discharge: June 23, 2020 Attending Provider at Admission: Vernon Izquierdo MD Attending Provider at Discharge: Celia Ervin MD Primary Care Provider: Carolee Gifford MD Diagnoses at Discharge Discharge Diagnosis (1) Chest pain: Status: Resolved Qualifiers: Chest pain type: precordial pain Qualified Code(s): R07.2 - Precordial pain (2) New onset a-fib: Status: Acute (3) CHF exacerbation: Status: Acute Qualifiers: Heart failure type: unspecified Qualified Code(s): I50.9 - Heart failure, unspecified (4) Bilateral lower extremity edema: Status: Acute (5) Venous ulcer of left leg: Status: Acute (6) Hypertension: Status: Chronic Qualifiers: Hypertension type: essential hypertension Qualified Code(s): I10 - Essential (primary) hypertension (7) PVD (peripheral vascular disease): Status: Chronic Reason for Visit Reason for Visit: SOB Discharge Data Data Completed and Pending: Completed Studies During Hospitalization Category Date Time Status CT angio chest PE protcl [id number] Stat Cat Scan 06/17/20 12:02 Completed Sestamibi Stress Test Request Routi ne Exams 06/21/20 10:53 Completed XR chest 1V elizabeth ble [id number] Urgent Exams 06/17/20 11:48 Completed NM sally perf SPECT r/s* [id number] Routin e Nuc Med 06/22/20 10:53 Completed CV echo complete* [id number] Routine Ultrasound 06/18/20 07:00 Completed CV echo lmt wo/w contras [id number] Stat Ultrasound 06/19/20 08:34 [place] [id number] Urgent Ultrasound 06/17/20 12:00 Completed US/CV paperwork R outine Ultrasound 06/19/20 09:10 Completed Laboratory Last Values WBC 9.2 10^3/uL (4.0- 10.0) 06/22/20 04:37 RBC 5.27 10^6/uL (4.1 -5.3) 06/22/20 04:37 Hgb 13.8 g/dL (11.7-1 6.6) 06/22/20 04:37 Hct 44.4 % (42.0-52.0 ) 06/22/20 04:37 MCV 84.3 fL (80-94) 06/22/20 04:37 MCH 26.2 pg (28.0-34. 0) L 06/22/20 04:37 MCHC 31.1 g/dL (30.0-3 6.0) 06/22/20 04:37 RDW 15.4 % (12.1-15.1 ) H 06/22/20 04:37 Plt Count 394 10^3/cmm (130 -400) 06/22/20 04:37 MPV 10.2 fL (7.4-10.4 ) 06/22/20 04:37 Neut % (Auto) 71.5 % 06/22/20 04:37 Lymph % (Auto) 15.4 % 06/22/20 04:37 Leake % (Auto) 10.2 % 06/22/20 04:37 Eos % (Auto) 2.0 % 06/22/20 04:37 Baso % (Auto) 0.7 % 06/22/20 04:37 Neut # (Auto) 6.60 10^3/uL (1.8 -7.7) 06/22/20 04:37 Lymph # (Auto) 1.4 10^3/uL (0.8- 4.8) 06/22/20 04:37 Leake # (Auto) 0.9 10^3/uL (0.2- 0.9) 06/22/20 04:37 Eos # (Auto) 0.2 10^3/uL (0.0- 0.8) 06/22/20 04:37 Baso # (Auto) 0.1 10^3/uL (0.0- 0.1) 06/22/20 04:37 Nucleated RBC % (a uto) 0 % 06/22/20 04:37 Nucleated RBCs # 0.0 /100WBC 06/22/20 04:37 PT 15.70 SECONDS (12 .1-14.9) H 06/20/20 04:47 INR 1.21 (0.8-1.2) H 06/20/20 04:47 D-Dimer 1.45 ug/mIFEU (0- 0.59) H 06/17/20 12:00 Specimen Type Arterial 06/19/20 16:47 Sample Site Radial, right 06/19/20 16:47 ABG pH 7.47 (7.35-7.45) H 06/19/20 16:47 ABG pCO2 48.2 mmHg (35-45) H 06/19/20 16:47 ABG pO2 60.9 mmHg (80.0-1 00.0) L 06/19/20 16:47 ABG HCO3 35.2 mmol/L (22-2 6) H 06/19/20 16:47 ABG Base Excess 10.0 mmol/L (-2.0 -2.0) H 06/19/20 16:47 Venkat Test Pos 06/19/20 16:47 Hematocrit 43.3 % (42-52) 06/19/20 16:47 O2 Delivery Device Room air 06/19/20 16:47 FiO2 21.0 % 06/19/20 16:47 Closing Machine Operator ID Monro 06/19/20 16:47 Sodium 132 mmol/L (136-1 45) L 06/23/20 04:26 Potassium 3.5 mmol/L (3.5-5 .1) 06/23/20 04:26 Chloride 90 mmol/L (98-107 ) L 06/23/20 04:26 Carbon Dioxide 33 mmol/L (22-29) H 06/23/20 04:26 Anion Gap 12.5 (5-19) 06/23/20 04:26 BUN 32 mg/dL (6-20) H 06/23/20 04:26 Creatinine 1.3 mg/dL (0.7-1. 2) H 06/23/20 04:26 GFR Calculation 57.5 mL/min (90-1 30) L 06/23/20 04:26 Glucose 106 mg/dL (65-115 ) 06/23/20 04:26 Estimat Average Gl ucose 111 06/18/20 04:15 Hemoglobin A1c 5.5 % (4.0-6.0) 06/18/20 04:15 Calculated Osmolal ity 281 mOsm/kg (285- 295) L 06/23/20 04:26 Calcium 9.1 mg/dL (8.5-10 .5) 06/23/20 04:26 Phosphorus 3.5 mg/dL (2.5-4. 5) 06/23/20 04:26 Magnesium 2.3 mg/dL (1.7-2. 3) 06/23/20 04:26 Total Bilirubin 0.9 mg/dL (0.15-1 .2) 06/22/20 04:37 AST 31 U/L (0-40) 06/22/20 04:37 ALT 27 U/L (0-41) 06/22/20 04:37 Alkaline Phosphata se 114 IU/L (40-130) 06/22/20 04:37 Ammonia 22 umol/L (16-60) 06/19/20 17:05 Troponin T Gen 5 n g/L 30 ng/L (0-15) H 06/18/20 04:15 Troponin T Baselin e 28 ng/L (0-15) H 06/17/20 12:00 Troponin T 120 Min roman 26.11 ng/L (0-15) H 06/17/20 14:00 Delta Troponin T -1.89 ABS# (0-10) L 06/17/20 14:00 Troponin T Hi Sens 6Hr 32.27 ng/L (0-15) H 06/17/20 17:40 Troponin T Hi Sens 6Hr Delta 4.27 ng/L (0-12) 06/17/20 17:40 C-Reactive Protein 71.8 mg/L (0.0-4. 9) H 06/20/20 04:47 NT-Pro-B Natriuret Pep 316 pg/mL (0-125) H 06/22/20 04:37 Total Protein 8.3 g/dL (6.6-8.7 ) 06/22/20 04:37 Albumin 3.7 g/dL (3.5-5.2 ) 06/22/20 04:37 Globulin 4.6 g/dL (1.3-4.6 ) 06/22/20 04:37 Triglycerides 65 mg/dL (0-150) 06/18/20 04:15 Cholesterol 200 mg/dL (0-200) 06/18/20 04:15 LDL Cholesterol, C alc 152 mg/dL (50-129 ) H 06/18/20 04:15 HDL Cholesterol 35 mg/dL (60-100) L 06/18/20 04:15 LDL/HDL Ratio 4.34 RATIO (0.00- 3.22) H 06/18/20 04:15 Cholesterol/HDL Ra neftaly 5.71 mg/dL (1.0-5 .00) H 06/18/20 04:15 Procalcitonin 0.19 ng/mL (0-0.5 ) 06/19/20 17:05 TSH 4.16 uIU/mL (0.27 -4.20) 06/17/20 12:00 Urine Color Yellow (Yellow) 06/17/20 13:51 Urine Appearance Clear (CLEAR) 06/17/20 13:51 Urine pH 5 (5-7) 06/17/20 13:51 Ur Specific Gravit y 1.015 (1.005-1.0 30) 06/17/20 13:51 Urine Protein 2+ (Negative) H 06/17/20 13:51 Urine Glucose (UA) Norm (Normal) 06/17/20 13:51 Urine Ketones Negative (Negati ve) 06/17/20 13:51 Urine Blood Neg (Negative) 06/17/20 13:51 Urine Nitrate Negative (Negati ve) 06/17/20 13:51 Urine Bilirubin Neg (Negative) 06/17/20 13:51 Urine Urobilinogen 1 mg/dL (Negative ) H 06/17/20 13:51 Ur Leukocyte Yoselyn ase Negative (Negati ve) 06/17/20 13:51 Urine RBC None /hpf (0-2) 06/17/20 13:51 Urine WBC 0-4 /hpf (0-5) H 06/17/20 13:51 Ur Squamous Epith Cells 0-4 /hpf (0-5) H 06/17/20 13:51 Amorphous Sediment Not Reportable 06/17/20 13:51 Urine Bacteria Trace /hpf (NONE) 06/17/20 13:51 Hyaline Casts 0-4 /lpf H 06/17/20 13:51 Vancomycin Trough 15.3 ug/mL (10-15 ) H 06/18/20 17:33 Vitals: Last Vital Signs Temp 97.8 F 06/23/20 08:00 Pulse 95 06/23/20 08:00 Resp 18 06/23/20 08:00 BP 123/81 06/23/20 08:00 Pulse Ox 95 06/23/20 08:00 Discharge Plan Discharge Patient Disposition: Home Condition: Stable Prescriptions: New amoxicillin-pot clavulanate 875-125 mg Tablet 1 tab PO BID Qty: 10 RF: 0 potassium chloride [Klor-Con M20] 20 mEq Tablet,Er Particles/Crystals 20 meq PO DAILY Qty: 30 RF: 0 Eliquis 5 mg tablet 5 mg PO BID Qty: 60 RF: 0 Lactobacillus acidophilus 10 billion cell capsule 10,000 mmu cells PO BID Qty: 30 RF: 0 metoprolol tartrate 50 mg Tablet 50 mg PO Q12H Qty: 60 RF: 0 doxycycline monohydrate 100 mg Tablet 100 mg PO BID Qty: 10 RF: 0 bumetanide 1 mg tablet 1 mg PO DAILY Qty: 30 RF: 0 Held ashalondradha root extract 2 cap PO BEDTIME RF: 0 Hold Instructions: discuss continuation with primary care provider Discontinued metoprolol succinate 50 mg tablet extended release 24 hr 50 mg PO QAM RF: 0 Discharge Orders: Discharge Order (Routine); Ordered 06/23/20 Ordered By: Celia Ervin Other Ambulatory Orders: Basic Metabolic Panel (Routine) Timeframe: 3 Days Facility: [facility] - Location: Lab - Main Lab Ordered By: Celia Ervin Referrals: Jerman Middleton DPM [Physician] - 4-7 days (Dr Middleton saw patient in hospital for lower extremity ulcer) Bola Gamboa M.D [Physician] - 4-7 days (3 days when BMP is done per Dr Gamboa) Carolee Gifford MD [Primary Care Provider] - 06/24/20 10:20 am (You have a hospital followup schedule with Dr. Carolee Gifford at [facility] on June 24 at 10:20am. Any questions or concerns, please give them a call. Thank you) Discharge Diet: Cardiac Discharge Activity: Increase activity as tolerated Patient Instructions: Metoprolol (By mouth), Bumetanide (By mouth), Apixaban (By mouth), Heart Failure (DC), Atrial Fibrillation (DC), Hypertension (DC), Opioid Safety, Stasis Ulcer Activity Restrictions/Additional Instructions: You presented with shortness of breath and were found to have significant hypertension with hypertensive urgency as well as evidence of some heart failure and new onset atrial fibrillation. You received diuresis (water pills) while here. Echocardiogram showed an ejection fraction of 45%. Stress testing did not show any evidence of significant ischemia. Your prolonged has been changed to twice a day dosing formulation. I have started you on Eliquis which is a blood thinner decrease risk of future stroke. You did have some slight increase in creatinine. On the day of discharge BUN and creatinine were 32/1.3. Potassium was 3.5. You will continue on some diuretic therapy as per my discussion with Dr. Rae. You will be on Bumex once a day. Because of the diuretic therapy I have ordered for potassium supplementation as well. I have ordered for repeat electrolytes in 3 days with follow-up to Dr. Gamboa. In terms of your lower extremity wounds, Dr. Middleton ordered lymphedema wraps. These are to stay in place until follow-up with him. You were started on antibiotics broadly to include doxycycline and Augmentin. I will continue these for an additional 5 days. I have added lactobacillus while you are on antibiotics to decrease the risk of developing an infection called C. difficile in your stools. Please take medications as prescribed. In terms of your activity you should keep your lower extremities elevated as much as possible. Should you have any recurrent shortness of breath, development of chest pain, or other concerning symptoms please see primary care provider or return to the emergency room for evaluation. Discharge Attestations Time Spent in Discharge Care*: greater than 30 min Specific Discharge Activities: educating patient, discussing with pcp/other providers, documenting/other paperwork and evaluating patient/reviewing data Quality Metrics Clinical Quality Measures During this hospital stay, did patient experience: None Coding Level of Care Code Acute [facility] [place] note Diagnoses Chest pain R07.2 Chest pain type: precordial pain New onset a-fib I48.91 CHF exacerbation I50.9 Heart failure type: unspecified Bilateral lower extremity edema R60.0 Venous ulcer of left leg I83.029; L97.929 Hypertension I10 Hypertension type: essential hypertension PVD (peripheral vascular disease) I73.9
--- NOTE | 2020-06-23 12:20 | PC.NURSE ---
discharge instructions given and explained.pt verb understanding of instructions.discharged ambulatory to exit at 1130.daughter to drive pt home
--- NOTE | 2020-06-23 16:00 | PC.NURSE ---
pt called and stated to dr newton that he is unable to afford eliquis prescription at his [facility] pharmacy.dr newton ordered xarelto instead..at [facility] pharmacy using 430b program.pt called and notified of this...and to [facility] prescription tomorrow.pt verb understanding
== END 2020-06-23 11:30 | disposition home or self-care (01) | DRG 264 ==
LOC: ER 15:25 → CSU 15:40
PROVIDERS: Admitting Provider Family Medicine; Emergency Provider Family Medicine; PCP Family Medicine; Visit Provider Hospitalist
DX: I50.21 Acute systolic (congestive) heart failure (principal); L97.922 Non-pressure chronic ulcer of unspecified part of left lower leg with fat layer exposed; L03.116 Cellulitis of left lower limb; L03.115 Cellulitis of right lower limb; N17.9 Acute kidney failure, unspecified; I11.0 Hypertensive heart disease with heart failure; I16.0 Hypertensive urgency; I48.91 Unspecified atrial fibrillation; I73.9 Peripheral vascular disease, unspecified; R59.0 Localized enlarged lymph nodes
CPT/HCPCS: 36415; 36600; 71045; 71275; 78452; 80048; 80053; 80061; 80202; 81001; 82140; 82803; 83036; 83735; 83880; 84100; 84145; 84443; 84484; 85025; 85378; 85610; 86140; 93005; 93017; 93306; 93970; 94664; 96365; 96366; 96367; 96372; 96375; 96376; 97161; 99291; A9500; C8924; J0696; J1650; J1940; J1956; J2270; J2785; J3370; J3480; J3490; J7030; J7040; Q9956; Q9967; S0030

== ENCOUNTER → 2020-10-12 11:43 | Outpatient (BNVA) | payer SELFPAY | PROVIDERS: PCP Family Medicine; Visit Provider Family Medicine | DX: I10 Essential (primary) hypertension (principal) | CPT/HCPCS: 80053; 80061; 85025 ==

== ENCOUNTER 2020-11-10 14:22 | Outpatient (CLI) | payer SELFPAY | END 2020-11-10 14:23 | disposition home or self-care (01) | LOC: WOUND 14:23 | PROVIDERS: PCP Family Medicine; Visit Provider Thoracic Surgery (Cardiothoracic Vascular Surgery) | DX: I89.0 Lymphedema, not elsewhere classified (principal); L97.822 Non-pressure chronic ulcer of other part of left lower leg with fat layer exposed | CPT/HCPCS: 97597; 97598; G0463 ==

== ENCOUNTER 2020-11-17 14:52 | Outpatient (CLI) | payer SELFPAY | END 2020-11-17 14:53 | disposition home or self-care (01) | LOC: WOUND 14:53 | PROVIDERS: PCP Family Medicine; Visit Provider Emergency Medicine | DX: I89.0 Lymphedema, not elsewhere classified (principal); L97.822 Non-pressure chronic ulcer of other part of left lower leg with fat layer exposed | CPT/HCPCS: 11042; 11045; 99212 ==

== ENCOUNTER 2020-11-24 08:04 | Outpatient (CLI) | payer SELFPAY | END 2020-11-24 08:05 | disposition home or self-care (01) | LOC: WOUND 08:04 | PROVIDERS: PCP Family Medicine; Visit Provider Thoracic Surgery (Cardiothoracic Vascular Surgery) | DX: I89.0 Lymphedema, not elsewhere classified (principal); L97.822 Non-pressure chronic ulcer of other part of left lower leg with fat layer exposed | CPT/HCPCS: 97597; 97598 ==

== ENCOUNTER 2020-12-01 08:13 | Outpatient (CLI) | payer SELFPAY | END 2020-12-01 08:14 | disposition home or self-care (01) | LOC: WOUND 08:14 | PROVIDERS: PCP Family Medicine; Visit Provider Thoracic Surgery (Cardiothoracic Vascular Surgery) | DX: I89.0 Lymphedema, not elsewhere classified (principal); L97.822 Non-pressure chronic ulcer of other part of left lower leg with fat layer exposed | CPT/HCPCS: 99212 ==

== ENCOUNTER 2020-12-08 07:55 | Outpatient (CLI) | payer SELFPAY | END 2020-12-08 07:56 | disposition home or self-care (01) | LOC: WOUND 07:56 | PROVIDERS: PCP Family Medicine; Visit Provider Thoracic Surgery (Cardiothoracic Vascular Surgery) | DX: I89.0 Lymphedema, not elsewhere classified (principal); L97.822 Non-pressure chronic ulcer of other part of left lower leg with fat layer exposed | CPT/HCPCS: 99212; A6253 ==

== ENCOUNTER 2020-12-15 08:09 | Outpatient (CLI) | payer SELFPAY | END 2020-12-15 08:10 | disposition home or self-care (01) | LOC: WOUND 08:10 | PROVIDERS: PCP Family Medicine; Visit Provider Thoracic Surgery (Cardiothoracic Vascular Surgery) | DX: R60.9 Edema, unspecified (principal) | CPT/HCPCS: 99212 ==

== ENCOUNTER → 2021-02-25 12:16 | Outpatient (BNVA) | payer SELFPAY | PROVIDERS: PCP Family Medicine; Visit Provider Family Medicine | DX: I11.0 Hypertensive heart disease with heart failure (principal); I50.9 Heart failure, unspecified; I48.91 Unspecified atrial fibrillation | CPT/HCPCS: 80053; 80061; 84443 ==